=== PATIENT | male | born 1960 | race Caucasian/White ===

== ENCOUNTER 2017-11-23 12:38 | Emergency (ER) | payer MEDICARE ==
[2017-11-23] MEDS ORDERED: Sodium Chloride 0.9% 2.5 ML Syringe FLUSH PRN (12:45)
[2017-11-23] MEDS ORDERED: Sodium Chloride 0.9% 10 ML Syringe FLUSH PRN (12:45)
[2017-11-23] MEDS ORDERED: Famotidine 20 MG/2 ML SDV IVPUSH ONE (12:45)
[2017-11-23] MEDS ORDERED: Aspirin 81 MG Tab.Chew PO ONE (12:45)
--- NOTE | 2017-11-23 12:52 | EDM.PDOC ---
ED HPI GENERAL MEDICAL PROBLEM - General Chief Complaint: Chest Pain Stated Complaint: CHEST PAIN Time Seen by Provider: 11/23/17 12:46 Source of Information: Reports: Patient History Limitations: Reports: No Limitations - History of Present Illness INITIAL COMMENTS - FREE TEXT/NARRATIVE: HISTORY AND PHYSICAL: [57-year-old male presenting with midsternal chest pain radiating to the left] History of Present Illness: []For the last 3-4 days patient has had pain midsternally all that has become more noticeable now Patient has had torn muscle to the posterior left shoulder that has been improving Pain started when he was collecting boxes for a move to a new apartment Patient is a type II diabetic Permit care provider is Dr. Eulogio Su Review of Systems: As per history of present illness and below otherwise all systems reviewed and negative. Past medical history: As per history of present illness and as reviewed below otherwise noncontributory. Surgical history: As per history of present illness and as reviewed below otherwise noncontributory. Social history: No reported history of drug or alcohol abuse. Family history: As per history of present illness and as reviewed below otherwise noncontributory. Physical exam: Alert and oriented male answering questions appropriately he has a hearing aid to his left ear does not hear anything on the right. HEENT: Atraumatic, normocehpalic, pupils reactive, negative for conjunctival pallor or scleral icterus, mucous membranes moist, throat clear, neck supple, nontender, trachea midline. Lungs: Clear to auscultation, breath sounds equal bilaterally, chest non tender. Heart: S1S2, regular, negative for clicks, rubs, or JVD. Abdomen: Soft, nondistended, nontender. Negative for masses or hepatossplenmegaly. Negative for costovertebral tenderness. Pelvis: Stable nontender. Genitourinary: Deferred. Rectal: Deferred Extremities: Atraumatic, negative for cords or calf pain. Neurovascular unremarkable. Neuro: Awake, alert, oriented. Cranial nerves II through XII unremarkable. Cerebellum unremarkable. Motor and sensory unremarkable throughout. Exam nonfocal. Discussed with the patient and his that his cardiac enzymes are elevated and will need to send him for cardiology in [place] is agreeable to this action. Diagnostics: [CBC CMP troponin UA chest x-ray EKG] Therapeutics: [Aspirin 324 mg Pepcid IV ] Impression: [Chest pain with elevated troponin] Plan: [Transfer to [facility] emergency department [facility]] Definitive disposition and diagnosis as appropriate pending reevaluation and review of above. Onset: Sudden Duration: Day(s): (3-4) Location: Reports: Chest Severity: Moderate Chest Pain Score (Numeric/FACES): 5 - Related Data Allergies Allergy/AdvReac Type Severity Reaction Status Date / Time No Known Allergies Allergy Verified 11/23/17 12:48 Home Meds: Home Meds Aspirin [Barber Chewable Aspirin] 81 mg PO DAILY 10/24/14 [History] Fluticasone Propionate [Flonase] 1 spray NASBOTH QPM 10/24/14 [History] Insulin Aspart [NovoLOG] 28 unit SQ TID 10/24/14 [History] Insulin Detemir [Levemir] 50 unit SUBCUT QPM 10/24/14 [History] Lisinopril [Prinivil] 10 mg PO DAILY 10/24/14 [History] Meclizine [Antivert] 25 mg PO QID 10/24/14 [History] Omeprazole 40 mg PO DAILY 10/24/14 [History] Triamterene/Hydrochlorothiazid [Triamterene-HCTZ 37.5-25 MG] 25 mg PO DAILY 03/31 [History] Vitamin E 1,000 units PO DAILY 10/24/14 [History] metFORMIN [Glucophage XR] 500 mg PO BID 10/24/14 [History] Sildenafil [Viagra] 50 mg PO DAILY PRN 08/25/15 [History] Rosuvastatin [Crestor] 20 mg PO DAILY 11/23/17 [History] Past Medical History HEENT History: Reports: Hard of Hearing Cardiovascular History: Reports: High Cholesterol, Hypertension Endocrine/Metabolic History: Reports: Diabetes, Type II - Infectious Disease History Infectious Disease History: Reports: Chicken Pox, Measles - Past Surgical History Musculoskeletal Surgical History: Reports: Arthroscopic Knee Social & Family History - Family History Cardiac: Reports: CAD Respiratory: Reports: Asthma Neurological: Reports: MS - Tobacco Use Smoking Status *Q: Never Smoker Second Hand Smoke Exposure: No - Alcohol Use Days Per Week of Alcohol Use: 0 - Recreational Drug Use Recreational Drug Use: No ED ROS GENERAL - Review of Systems Review Of Systems: ROS reveals no pertinent complaints other than HPI. ED EXAM, GENERAL - Physical Exam Exam: See Below (see dictation) EKG INTERPRETATION EKG Date: 11/23/17 Rhythm: NSR Course - Vital Signs Last Recorded V/S: Last Vital Signs Temp 36.3 C 11/23/17 12:44 Pulse 73 11/23/17 13:50 Resp 13 11/23/17 13:50 BP 139/94 H 11/23/17 13:50 Pulse Ox 99 11/23/17 13:50 - Orders/Labs/Meds Orders: Active Orders 24 hr Category Date Time Status Cardiac Monitoring [RC] . DIRECTED Care 11/23/17 12:45 Active EKG Documentation Completion [RC] STAT Care 11/23/17 12:45 Active Oxygen Therapy [RC] ASDIRECTED Care 11/23/17 12:45 Active Chest 1V Frontal [CR] Stat Exams 11/23/17 13:00 Taken UA W/MICROSCOPIC [URIN] Stat Lab 11/23/17 12:45 Ordered Nitroglycerin [Nitrostat] Med 11/23/17 12:53 Active 0.4 mg SL Q5M PRN Sodium Chloride 0.9% [Normal Saline] 1,000 ml Med 11/23/17 13:39 Active IV STAT Sodium Chloride 0.9% [Saline Flush] Med 11/23/17 12:45 Active 10 ml FLUSH ASDIRECTED PRN Sodium Chloride 0.9% [Saline Flush] Med 11/23/17 12:45 Active 2.5 ml FLUSH ASDIRECTED PRN Saline Lock Insert [OM.PC] Stat Oth 11/23/17 12:45 Ordered Medication Orders Sodium Chloride (Normal Saline) 1,000 mls @ 999 mls/hr IV STAT ONE Stop: 11/23/17 14:39 Last Admin: 11/23/17 13:45 Dose: 999 mls/hr Nitroglycerin (Nitrostat) 0.4 mg SL Q5M PRN PRN Reason: Chest Pain Sodium Chloride (Saline Flush) 10 ml FLUSH ASDIRECTED PRN PRN Reason: Keep Vein Open Last Admin: 11/23/17 13:25 Dose: 10 ml Sodium Chloride (Saline Flush) 2.5 ml FLUSH ASDIRECTED PRN PRN Reason: Keep Vein Open Last Admin: 11/23/17 13:25 Dose: 2.5 ml Labs: Laboratory Tests 11/23/17 11/23/17 11/23/17 Range/Units 12:50 12:50 12:50 WBC 12.29 H (4.0-11.0) K/uL RBC 5.82 (4.50-5.90) M/uL Hgb 15.9 (13.0-17.0) g/dL Hct 45.7 (38.0-50.0) % MCV 78.5 L (80.0-98.0) fL MCH 27.3 (27.0-32.0) pg MCHC 34.8 (31.0-37.0) g/dL RDW Std Deviation 38.0 (28.0-62.0) fl RDW Coeff of [place] 14 (11.0-15.0) % Plt Count 316 (150-400) K/uL MPV 10.20 (7.40-12.00) fL Neut % (Auto) 73.4 (48.0-80.0) % Lymph % (Auto) 18.1 (16.0-40.0) % [place] % (Auto) 7.3 (0.0-15.0) % Eos % (Auto) 1.0 (0.0-7.0) % Baso % (Auto) 0.2 (0.0-1.5) % Neut # (Auto) 9.0 H (1.4-5.7) K/uL Lymph # (Auto) 2.2 (0.6-2.4) K/uL [place] # (Auto) 0.9 H (0.0-0.8) K/uL Eos # (Auto) 0.1 (0.0-0.7) K/uL Baso # (Auto) 0.0 (0.0-0.1) K/uL Nucleated RBC % 0.0 /100WBC Nucleated RBCs # 0 K/uL INR 1.04 Sodium 137 (136-148) mmol/L Potassium 4.1 (3.5-5.1) mmol/L Chloride 100 (98-107) mmol/L Carbon Dioxide 28.0 (21.0-32.0) mmol/L BUN 11 (7.0-18.0) mg/dL Creatinine 0.9 (0.8-1.3) mg/dL Est Cr Clr Drug Dosing 91.65 mL/min Estimated GFR (MDRD) > 60.0 ml/min Glucose 244 H (74-106) mg/dL Calcium 9.2 (8.5-10.1) mg/dL Total Bilirubin 0.4 (0.2-1.0) mg/dL AST 19 (15-37) IU/L ALT 29 (14-63) IU/L Alkaline Phosphatase 105 (46-116) U/L Troponin I 0.388 H* (0.000-0.056) ng/mL Total Protein 7.3 (6.4-8.2) g/dL Albumin 3.9 (3.4-5.0) g/dL Globulin 3.4 (2.0-3.5) g/dL Albumin/Globulin Ratio 1.1 L (1.3-2.8) Meds: Medications Generic Name Dose Route Start Last Admin Trade Name Freq PRN Reason Stop Dose Admin Sodium Chloride 1,000 mls @ 999 mls/hr 11/23/17 13:39 11/23/17 13:45 Normal Saline IV 11/23/17 14:39 999 mls/hr STAT ONE Administration Nitroglycerin 0.4 mg 11/23/17 12:53 Nitrostat SL Q5M PRN Chest Pain Sodium Chloride 10 ml 11/23/17 12:45 11/23/17 13:25 Saline Flush FLUSH 10 ml ASDIRECTED PRN Administration Keep Vein Open Sodium Chloride 2.5 ml 11/23/17 12:45 11/23/17 13:25 Saline Flush FLUSH 2.5 ml ASDIRECTED PRN Administration Keep Vein Open Discontinued Medications Generic Name Dose Route Start Last Admin Trade Name Freq PRN Reason Stop Dose Admin Aspirin 324 mg 11/23/17 12:45 11/23/17 13:25 Aspirin PO 11/23/17 12:46 324 mg ONETIME ONE Administration Famotidine 20 mg 11/23/17 12:45 11/23/17 13:25 Pepcid IVPUSH 11/23/17 12:46 20 mg ONETIME ONE Administration Morphine Sulfate 2 mg 11/23/17 13:39 11/23/17 13:45 Morphine IVPUSH 11/23/17 13:40 2 mg ONETIME ONE Administration Departure - Departure Time of Disposition: 13:55 Disposition: Home, Self-Care 01 Condition: Good Clinical Impression: Acute myocardial infarction Qualifiers: Myocardial infarction type: unspecified Involved coronary artery: unspecified coronary artery Qualified Code(s): I21.9 - Acute myocardial infarction, unspecified Instructions: Heart Attack, [id number] Forms: ED Department Discharge - My Orders Last 24 Hours: My Active Orders 11/23/17 12:45 Cardiac Monitoring [RC] . DIRECTED EKG Documentation Completion [RC] STAT Oxygen Therapy [RC] ASDIRECTED UA W/MICROSCOPIC [URIN] Stat Sodium Chloride 0.9% [Saline Flush] 10 ml FLUSH ASDIRECTED PRN Sodium Chloride 0.9% [Saline Flush] 2.5 ml FLUSH ASDIRECTED PRN Saline Lock Insert [OM.PC] Stat 11/23/17 12:53 Nitroglycerin [Nitrostat] 0.4 mg SL Q5M PRN 11/23/17 13:00 Chest 1V Frontal [CR] Stat 11/23/17 13:39 Sodium Chloride 0.9% [Normal Saline] 1,000 ml IV STAT - Assessment/Plan Last 24 Hours: My Active Orders 11/23/17 12:45 Cardiac Monitoring [RC] . DIRECTED EKG Documentation Completion [RC] STAT Oxygen Therapy [RC] ASDIRECTED UA W/MICROSCOPIC [URIN] Stat Sodium Chloride 0.9% [Saline Flush] 10 ml FLUSH ASDIRECTED PRN Sodium Chloride 0.9% [Saline Flush] 2.5 ml FLUSH ASDIRECTED PRN Saline Lock Insert [OM.PC] Stat 11/23/17 12:53 Nitroglycerin [Nitrostat] 0.4 mg SL Q5M PRN 11/23/17 13:00 Chest 1V Frontal [CR] Stat 11/23/17 13:39 Sodium Chloride 0.9% [Normal Saline] 1,000 ml IV STAT
[2017-11-23] MEDS ORDERED: Nitroglycerin 0.4 MG Tab.SL SL PRN (12:53)
[2017-11-23 13:36] LABS: CHLORIDE,CL 100 mmol/L (98-107); SODIUM,NA 137 mmol/L (136-148)
[2017-11-23] MEDS ORDERED: Morphine 2 MG/ML Syringe IVPUSH ONE (13:39)
[2017-11-23] MEDS ORDERED: Sodium Chloride 0.9% 1,000 ML IV ONE (13:39)
[2017-11-23] MEDS ORDERED: Nitroglycerin 2% Oint 1 GM UD Packet TOP ONE (14:01)
--- NOTE | 2017-11-23 14:24 | CR ---
EXAMINATION: Portable chest radiograph. HISTORY: Chest pain. FINDINGS: The trachea is midline. The cardiomediastinal silhouette is within normal limits. No pulmonary infilt rates, effusions or pneumothorax. Mild bibasilar atelectasis. Osseous structures appear unremarkable. IMPRESSION: No acute cardiopulmonary process.
[2017-11-23 14:43] VITALS: BP 145/92
== END 2017-11-23 14:52 ==
LOC: MW.ED 12:38
DX: I21.9 Acute myocardial infarction, unspecified (principal); I10 Essential (primary) hypertension; E78.00 Pure hypercholesterolemia, unspecified; E11.9 Type 2 diabetes mellitus without complications; Z79.82 Long term (current) use of aspirin; Z79.4 Long term (current) use of insulin; Z79.899 Other long term (current) drug therapy
CPT/HCPCS: 71045; 80053; 84484; 85025; 85610; 96361; 96374; 96375; 99285; A9270; J2270; J7040; 99284

== ENCOUNTER 2018-05-11 18:19 | Observation (INO) | payer MEDICARE ==
[2018-05-11] MEDS ORDERED: Sodium Chloride 0.9% 10 ML Syringe FLUSH PRN ×2 (18:26→21:36)
[2018-05-11] MEDS ORDERED: Aspirin 81 MG Tab.Chew PO ONE (18:26)
[2018-05-11] MEDS ORDERED: Sodium Chloride 0.9% 2.5 ML Syringe FLUSH PRN ×2 (18:26→21:36)
[2018-05-11] MEDS ORDERED: Sodium Chloride 0.9% 1,000 ML IV ONE (18:26)
--- NOTE | 2018-05-11 18:27 | EDM.PDOC ---
ED HPI GENERAL MEDICAL PROBLEM - General Chief Complaint: Chest Pain Stated Complaint: PT LEFT SIDE OF BODY NUMB Time Seen by Provider: 05/11/18 18:27 Source of Information: Reports: Patient History Limitations: Reports: No Limitations - History of Present Illness INITIAL COMMENTS - FREE TEXT/NARRATIVE: HISTORY AND PHYSICAL: History of present illness: Patient is a 58-year-old male here with complaint of chest pain on and off today. He states that he is not currently having chest pain but he did about 20 minutes ago. He states he felt a little nauseous and he is having a tingling in his left arm almost like she hit his funny bone. He has a history of acute [place] in November requiring stents. He denies any shortness of breath, diaphoresis, abdominal pain, vomiting, diarrhea. Review of systems: As per history of present illness and below otherwise all systems reviewed and negative. Past medical history: As per history of present illness and as reviewed below otherwise noncontributory. Surgical history: As per history of present illness and as reviewed below otherwise noncontributory. Social history: No reported history of drug or alcohol abuse. Family history: As per history of present illness and as reviewed below otherwise noncontributory. Physical exam: General: Patient sitting comfortably in no acute distress and nontoxic appearing HEENT: Atraumatic, normocephalic, pupils reactive, negative for conjunctival pallor or scleral icterus, mucous membranes moist, throat clear, neck supple, nontender, trachea midline. No meningeal signs. Lungs: Clear to auscultation, breath sounds equal bilaterally, chest nontender. Heart: S1S2, regular, negative for clicks, rubs, or overt murmur. Abdomen: Soft, obese, nontender. Negative for masses or hepatosplenomegaly. Negative for costovertebral tenderness. Pelvis: Stable nontender. Genitourinary: Deferred. Rectal: Deferred. Extremities: Atraumatic, negative for cords or calf pain. Neurovascular unremarkable. Neuro: Awake, alert, oriented. Cranial nerves II through XII unremarkable. Cerebellum unremarkable. Motor and sensory unremarkable throughout. Exam nonfocal. Notes: Diagnostics: CBC, CMP, troponin, lipase EKG, chest x-ray Therapeutics: Aspirin 325 mg Famotidine 20 mg IV Prescriptions: None Impression: Chest pain, r/o ACS Plan: Discussed with Dr. Antohi, patient will be admitted to observation on telemetry to rule out ACS. Definitive disposition and diagnosis as appropriate pending reevaluation and review of above. - Related Data Allergies Allergy/AdvReac Type Severity Reaction Status Date / Time No Known Allergies Allergy Verified 05/11/18 18:30 Home Meds: Home Meds Aspirin [Barber Chewable Aspirin] 81 mg PO DAILY 10/24/14 [History] Fluticasone Propionate [Flonase] 1 spray NASBOTH QPM 10/24/14 [History] Insulin Aspart [NovoLOG] 28 unit SQ TID 10/24/14 [History] Insulin Detemir [Levemir] 50 unit SUBCUT QPM 10/24/14 [History] Lisinopril [Prinivil] 10 mg PO DAILY 10/24/14 [History] Meclizine [Antivert] 25 mg PO QID 10/24/14 [History] Omeprazole 40 mg PO DAILY 10/24/14 [History] Triamterene/Hydrochlorothiazid [Triamterene-HCTZ 37.5-25 MG] 25 mg PO DAILY 03/31 [History] Vitamin E 1,000 units PO DAILY 10/24/14 [History] metFORMIN [Glucophage XR] 500 mg PO BID 10/24/14 [History] Sildenafil [Viagra] 50 mg PO DAILY PRN 08/25/15 [History] Rosuvastatin [Crestor] 20 mg PO DAILY 11/23/17 [History] Past Medical History HEENT History: Reports: Hard of Hearing Cardiovascular History: Reports: High Cholesterol, Hypertension Endocrine/Metabolic History: Reports: Diabetes, Type II - Infectious Disease History Infectious Disease History: Reports: Chicken Pox, Measles - Past Surgical History Musculoskeletal Surgical History: Reports: Arthroscopic Knee Social & Family History - Family History Family Medical History: Noncontributory Cardiac: Reports: CAD Respiratory: Reports: Asthma Neurological: Reports: MS ED ROS GENERAL - Review of Systems Review Of Systems: ROS reveals no pertinent complaints other than HPI. ED EXAM, GENERAL - Physical Exam Exam: See Below (see dictation) Course - Vital Signs Last Recorded V/S: Last Vital Signs Temp 36.6 C 05/11/18 18:19 Pulse 77 05/11/18 18:19 Resp 18 05/11/18 18:19 BP 150/89 H 08/25/18 18:19 Pulse Ox 98 05/11/18 18:19 - Orders/Labs/Meds Orders: Active Orders 24 hr Category Date Time Status Admission Status [Patient Status] [ADT] Stat ADT 05/11/18 19:46 Ordered Cardiac Monitoring [RC] . DIRECTED Care 05/11/18 18:26 Active EKG Documentation Completion [RC] STAT Care 05/11/18 18:26 Active Pulse Oximetry [RC] ASDIRECTED Care 05/11/18 18:26 Active Chest 1V Frontal [CR] Stat Exams 05/11/18 18:26 Taken Sodium Chloride 0.9% [Saline Flush] Med 05/11/18 18:26 Active 10 ml FLUSH ASDIRECTED PRN Sodium Chloride 0.9% [Saline Flush] Med 05/11/18 18:26 Active 2.5 ml FLUSH ASDIRECTED PRN Saline Lock Insert [OM.PC] Stat Oth 05/11/18 18:26 Ordered Medication Orders Sodium Chloride (Saline Flush) 10 ml FLUSH ASDIRECTED PRN PRN Reason: Keep Vein Open Sodium Chloride (Saline Flush) 2.5 ml FLUSH ASDIRECTED PRN PRN Reason: Keep Vein Open Labs: Laboratory Tests 05/11/18 05/11/18 05/11/18 Range/Units 18:35 18:35 18:35 WBC 12.53 H (4.0-11.0) K/uL RBC 5.80 (4.50-5.90) M/uL Hgb 16.0 (13.0-17.0) g/dL Hct 45.9 (38.0-50.0) % MCV 79.1 L (80.0-98.0) fL MCH 27.6 (27.0-32.0) pg MCHC 34.9 (31.0-37.0) g/dL RDW Std Deviation 38.6 (28.0-62.0) fl RDW Coeff of [place] 14 (11.0-15.0) % Plt Count 327 (150-400) K/uL MPV 9.90 (7.40-12.00) fL Neut % (Auto) 64.7 (48.0-80.0) % Lymph % (Auto) 27.1 (16.0-40.0) % [place] % (Auto) 5.4 (0.0-15.0) % Eos % (Auto) 2.6 (0.0-7.0) % Baso % (Auto) 0.2 (0.0-1.5) % Neut # (Auto) 8.1 H (1.4-5.7) K/uL Lymph # (Auto) 3.4 H (0.6-2.4) K/uL [place] # (Auto) 0.7 (0.0-0.8) K/uL Eos # (Auto) 0.3 (0.0-0.7) K/uL Baso # (Auto) 0.0 (0.0-0.1) K/uL Nucleated RBC % 0.0 /100WBC Nucleated RBCs # 0 K/uL INR 1.04 Sodium 139 (136-148) mmol/L Potassium 3.9 (3.5-5.1) mmol/L Chloride 103 (98-107) mmol/L Carbon Dioxide 28.5 (21.0-32.0) mmol/L BUN 16 (7.0-18.0) mg/dL Creatinine 1.1 (0.8-1.3) mg/dL Est Cr Clr Drug Dosing TNP Estimated GFR (MDRD) > 60.0 ml/min Glucose 139 H (74-106) mg/dL Calcium 9.5 (8.5-10.1) mg/dL Total Bilirubin 0.4 (0.2-1.0) mg/dL AST 13 L (15-37) IU/L ALT 25 (14-63) IU/L Alkaline Phosphatase 88 (46-116) U/L Troponin I < 0.050 (0.000-0.056) ng/mL Total Protein 7.9 (6.4-8.2) g/dL Albumin 4.4 (3.4-5.0) g/dL Globulin 3.5 (2.0-3.5) g/dL Albumin/Globulin Ratio 1.3 (1.3-2.8) Lipase 242 (73-393) U/L Meds: Medications Generic Name Dose Route Start Last Admin Trade Name Freq PRN Reason Stop Dose Admin Sodium Chloride 10 ml 05/11/18 18:26 Saline Flush FLUSH ASDIRECTED PRN Keep Vein Open Sodium Chloride 2.5 ml 05/11/18 18:26 Saline Flush FLUSH ASDIRECTED PRN Keep Vein Open Discontinued Medications Generic Name Dose Route Start Last Admin Trade Name Freq PRN Reason Stop Dose Admin Aspirin 324 mg 05/11/18 18:26 05/11/18 18:56 Aspirin PO 05/11/18 18:27 324 mg ONETIME ONE Administration Famotidine 20 mg 05/11/18 18:28 05/11/18 18:58 Pepcid IVPUSH 05/11/18 18:29 20 mg ONETIME ONE Administration Sodium Chloride 1,000 mls @ 999 mls/hr 05/11/18 18:26 05/11/18 18:56 Normal Saline IV 05/11/18 19:26 999 mls/hr BOLUS ONE Administration Departure - Departure Time of Disposition: 19:48 Disposition: Refer to Observation Condition: Good Clinical Impression: Chest pain Referrals: PCP,None [Primary Care Provider] - Forms: ED Department Discharge - My Orders Last 24 Hours: My Active Orders 05/11/18 18:26 Cardiac Monitoring [RC] . DIRECTED EKG Documentation Completion [RC] STAT Pulse Oximetry [RC] ASDIRECTED Chest 1V Frontal [CR] Stat Sodium Chloride 0.9% [Saline Flush] 10 ml FLUSH ASDIRECTED PRN Sodium Chloride 0.9% [Saline Flush] 2.5 ml FLUSH ASDIRECTED PRN Saline Lock Insert [OM.PC] Stat 05/11/18 19:46 Admission Status [Patient Status] [ADT] Stat - Assessment/Plan Last 24 Hours: My Active Orders 05/11/18 18:26 Cardiac Monitoring [RC] . DIRECTED EKG Documentation Completion [RC] STAT Pulse Oximetry [RC] ASDIRECTED Chest 1V Frontal [CR] Stat Sodium Chloride 0.9% [Saline Flush] 10 ml FLUSH ASDIRECTED PRN Sodium Chloride 0.9% [Saline Flush] 2.5 ml FLUSH ASDIRECTED PRN Saline Lock Insert [OM.PC] Stat 05/11/18 19:46 Admission Status [Patient Status] [ADT] Stat
[2018-05-11] MEDS ORDERED: Famotidine 20 MG/2 ML SDV IVPUSH ONE (18:28)
[2018-05-11 19:35] LABS: CHLORIDE,CL 103 mmol/L (98-107); SODIUM,NA 139 mmol/L (136-148)
[2018-05-11] MEDS ORDERED: oxyCODONE 5 MG Tab PO PRN (21:36)
[2018-05-11] MEDS ORDERED: Albuterol/Ipratropium 3.0-0.5 MG/3 ML Neb Soln NEB PRN (21:36)
[2018-05-11] MEDS ORDERED: Morphine 2 MG/ML Syringe IVPUSH PRN (21:36)
[2018-05-11] MEDS ORDERED: Acetaminophen 325 MG Tab PO PRN (21:36)
[2018-05-11] MEDS ORDERED: Enoxaparin 40 MG/0.4 ML Syringe SUBCUT SCH (21:45)
[2018-05-11] MEDS ORDERED: Insulin Detemir 100 Units/ML 3 ML Pen SUBCUT SCH (21:45)
[2018-05-11] MEDS ORDERED: Insulin Aspart 100 Units/ML 3 ML Pen SUBCUT SCH (22:00)
[2018-05-12 04:51] LABS: CHLORIDE,CL 107 mmol/L (98-107); SODIUM,NA 142 mmol/L (136-148)
[2018-05-12] MEDS ORDERED: Omeprazole 20 MG Cap.CR PO SCH (07:30)
[2018-05-12] MEDS ORDERED: Insulin Aspart 100 Units/ML 3 ML Pen SUBCUT SCH (07:30)
[2018-05-12] MEDS ORDERED: Hydrochlorothiazide/Triamterene 25-37.5 Tab PO SCH (09:00)
[2018-05-12] MEDS ORDERED: Vitamin E (dl-alpha-tocopherol acetate) 400 Unit Cap PO SCH (09:00)
[2018-05-12] MEDS ORDERED: Meclizine 25 MG Tab PO SCH ×3 (09:00)
[2018-05-12] MEDS ORDERED: Lisinopril 10 MG Tab PO SCH (09:00)
[2018-05-12] MEDS ORDERED: Aspirin 81 MG Tab.Chew PO SCH (09:00)
[2018-05-12] MEDS ORDERED: Rosuvastatin 10 MG Tab PO SCH (09:00)
[2018-05-12 12:27] VITALS: BP 103/58
[2018-05-12] MEDS ORDERED: INSULIN DEGLUDEC 50 UNIT SQ SCH (12:30)
[2018-05-12] MEDS ORDERED: INSULIN DEGLUDEC 48 UNIT SUBCUT SCH (12:30)
--- NOTE | 2018-05-12 15:36 | PCM.HP ---
H&P History of Present Illness - General Date of Service: 05/12/18 Admit Problem/Dx: Admission Diagnosis/Problem Admission Diagnosis/Problem Chest pain Source of Information: Patient History Limitations: Reports: No Limitations - History of Present Illness Initial Comments - Free Text/Narative: Patient 58 years old man presented to hospital because of chest pain that was sharp and localized in the middle of the chest , also he had some tingling in the left arm. Patient says that his pain was between 30 seconds to 1 minute, and he had about 5-6 episodes throughout the day, yesterday. He had DC in November , this years and he is status post stent. Patient has past medical history of diabetes mellitus, hyperlipidemia and hypertension. His chest pain was not tender to palpation, and did not change with bridging Duration of Symptoms: Reports: Hour(s): Location: Reports: Chest, Upper Extremity, Left - Related Data Allergies/Adverse Reactions: Allergies Allergy/AdvReac Type Severity Reaction Status Date / Time No Known Allergies Allergy Verified 05/11/18 18:30 Home Medications: Home Meds Aspirin [Barber Chewable Aspirin] 81 mg PO DAILY 10/24/14 [History] Fluticasone Propionate [Flonase] 1 spray NASBOTH QPM 10/24/14 [History] Insulin Aspart [NovoLOG] See Protocol SQ TID 10/24/14 [History] Lisinopril [Prinivil] 10 mg PO DAILY 10/24/14 [History] Meclizine [Antivert] 25 mg PO QID 10/24/14 [History] Omeprazole 40 mg PO DAILY 10/24/14 [History] Triamterene/Hydrochlorothiazid [Triamterene-HCTZ 37.5-25 MG] 25 mg PO DAILY 03/31 [History] Vitamin E 1,000 units PO DAILY 10/24/14 [History] metFORMIN [Glucophage XR] 500 mg PO BID 10/24/14 [History] Rosuvastatin [Crestor] 20 mg PO DAILY 11/23/17 [History] Clopidogrel [Plavix] 75 mg PO DAILY 05/11/18 [History] Insulin Degludec [Tresiba Flextouch U-100] 50 units SQ PCLUNCH 05/11/18 [History ] Metoprolol Tartrate 25 mg PO BID 05/11/18 [History] Ranitidine [Zantac] 150 mg PO BEDTIME 05/11/18 [History] Gabapentin [Neurontin] 200 mg PO TID #180 capsule 05/12/18 [Rx] Past Medical History HEENT History: Reports: Hard of Hearing Cardiovascular History: Reports: High Cholesterol, Hypertension Other Cardiovascular History: DC on Endocrine/Metabolic History: Reports: Diabetes, Type II - Infectious Disease History Infectious Disease History: Reports: Chicken Pox, Measles - Past Surgical History GI Surgical History: Reports: Appendectomy, Cholecystectomy Musculoskeletal Surgical History: Reports: Arthroscopic Knee Social & Family History - Family History Family Medical History: Noncontributory Cardiac: Reports: CAD Respiratory: Reports: Asthma Neurological: Reports: MS - Tobacco Use Smoking Status *Q: Former Smoker Used Tobacco, but Quit: Yes Month/Year Tobacco Last Used: 12 years ago Second Hand Smoke Exposure: No - Caffeine Use Caffeine Use: Reports: Soda - Recreational Drug Use Recreational Drug Use: No H&P Review of Systems - Review of Systems: Review Of Systems: See Below General: Reports: No Symptoms HEENT: Reports: No Symptoms Pulmonary: Reports: No Symptoms Cardiovascular: Reports: No Symptoms, Chest Pain Gastrointestinal: Reports: No Symptoms Genitourinary: Reports: No Symptoms Musculoskeletal: Reports: No Symptoms Skin: Reports: No Symptoms Psychiatric: Reports: No Symptoms Neurological: Reports: Tingling Hematologic/Lymphatic: Reports: No Symptoms Immunologic: Reports: No Symptoms Exam - Exam Exam: See Below - Vital Signs Vital Signs: Last Vital Signs Temp 208.0 F H 05/12/18 08:00 Pulse 108 H 05/12/18 08:00 Resp 18 05/12/18 08:00 BP 123/80 05/12/18 08:31 Pulse Ox 96 05/12/18 08:00 Weight: 217 lb - Exam Quality Assessment: No: Supplemental Oxygen General: Alert, Oriented HEENT: Conjunctiva Clear Neck: Supple, Trachea Midline. No: Thyromegaly Lungs: Clear to Auscultation, Normal Respiratory Effort Cardiovascular: Regular Rate, Regular Rhythm, Normal S1, Normal S2. No: Systolic Murmur, Diastolic Murmur GI/Abdominal Exam: Normal Bowel Sounds, Soft, Non-Tender, No Organomegaly, No Distention Back Exam: Normal Inspection Extremities: Normal Inspection, No Pedal Edema Skin: Warm, Dry, Intact Neurological: Cranial Nerves Intact Neuro Extensive - Mental Status: Alert, Oriented x3 Neuro Extensive - Motor, Sensory, Reflexes: CN II-XII Intact, Normal Gait Psychiatric: Alert, Normal Affect, Normal Mood - Patient Data Lab Results Last 24 hrs: Laboratory Results - last 24 hr 05/11/18 05/11/18 05/11/18 Range/Units 18:35 18:35 18:35 WBC 12.53 H (4.0-11.0) K/uL RBC 5.80 (4.50-5.90) M/uL Hgb 16.0 (13.0-17.0) g/dL Hct 45.9 (38.0-50.0) % MCV 79.1 L (80.0-98.0) fL MCH 27.6 (27.0-32.0) pg MCHC 34.9 (31.0-37.0) g/dL RDW Std Deviation 38.6 (28.0-62.0) fl RDW Coeff of [place] 14 (11.0-15.0) % Plt Count 327 (150-400) K/uL MPV 9.90 (7.40-12.00) fL Neut % (Auto) 64.7 (48.0-80.0) % Lymph % (Auto) 27.1 (16.0-40.0) % [place] % (Auto) 5.4 (0.0-15.0) % Eos % (Auto) 2.6 (0.0-7.0) % Baso % (Auto) 0.2 (0.0-1.5) % Neut # (Auto) 8.1 H (1.4-5.7) K/uL Lymph # (Auto) 3.4 H (0.6-2.4) K/uL [place] # (Auto) 0.7 (0.0-0.8) K/uL Eos # (Auto) 0.3 (0.0-0.7) K/uL Baso # (Auto) 0.0 (0.0-0.1) K/uL Nucleated RBC % 0.0 /100WBC Nucleated RBCs # 0 K/uL INR 1.04 Sodium 139 (136-148) mmol/L Potassium 3.9 (3.5-5.1) mmol/L Chloride 103 (98-107) mmol/L Carbon Dioxide 28.5 (21.0-32.0) mmol/L BUN 16 (7.0-18.0) mg/dL Creatinine 1.1 (0.8-1.3) mg/dL Est Cr Clr Drug Dosing TNP Estimated GFR (MDRD) > 60.0 ml/min Glucose 139 H (74-106) mg/dL POC Glucose (60-110) mg/dL Hemoglobin A1c (4.5-6.2) % Calcium 9.5 (8.5-10.1) mg/dL Total Bilirubin 0.4 (0.2-1.0) mg/dL AST 13 L (15-37) IU/L ALT 25 (14-63) IU/L Alkaline Phosphatase 88 (46-116) U/L Troponin I < 0.050 (0.000-0.056) ng/mL Total Protein 7.9 (6.4-8.2) g/dL Albumin 4.4 (3.4-5.0) g/dL Globulin 3.5 (2.0-3.5) g/dL Albumin/Globulin Ratio 1.3 (1.3-2.8) Triglycerides (0-200) mg/dL Cholesterol (50-200) mg/dL LDL Cholesterol, Calc (60-180) mg/dL VLDL Cholesterol (5-55) mg/dL HDL Cholesterol (40-60) mg/dL Cholesterol/HDL Ratio (3.3-6.0) Lipase 242 (73-393) U/L 05/11/18 05/12/18 05/12/18 Range/Units 22:16 03:39 03:39 WBC 10.16 (4.0-11.0) K/uL RBC 5.06 (4.50-5.90) M/uL Hgb 13.7 (13.0-17.0) g/dL Hct 40.0 (38.0-50.0) % MCV 79.1 L (80.0-98.0) fL MCH 27.1 (27.0-32.0) pg MCHC 34.3 (31.0-37.0) g/dL RDW Std Deviation 39.0 (28.0-62.0) fl RDW Coeff of [place] 14 (11.0-15.0) % Plt Count 260 (150-400) K/uL MPV 9.80 (7.40-12.00) fL Neut % (Auto) (48.0-80.0) % Lymph % (Auto) (16.0-40.0) % [place] % (Auto) (0.0-15.0) % Eos % (Auto) (0.0-7.0) % Baso % (Auto) (0.0-1.5) % Neut # (Auto) (1.4-5.7) K/uL Lymph # (Auto) (0.6-2.4) K/uL [place] # (Auto) (0.0-0.8) K/uL Eos # (Auto) (0.0-0.7) K/uL Baso # (Auto) (0.0-0.1) K/uL Nucleated RBC % 0.0 /100WBC Nucleated RBCs # 0 K/uL INR Sodium 142 (136-148) mmol/L Potassium 3.9 (3.5-5.1) mmol/L Chloride 107 (98-107) mmol/L Carbon Dioxide 29.1 (21.0-32.0) mmol/L BUN 15 (7.0-18.0) mg/dL Creatinine 1.1 (0.8-1.3) mg/dL Est Cr Clr Drug Dosing 71.68 Estimated GFR (MDRD) > 60.0 ml/min Glucose 131 H (74-106) mg/dL POC Glucose 129 H (60-110) mg/dL Hemoglobin A1c (4.5-6.2) % Calcium 8.7 (8.5-10.1) mg/dL Total Bilirubin (0.2-1.0) mg/dL AST (15-37) IU/L ALT (14-63) IU/L Alkaline Phosphatase (46-116) U/L Troponin I (0.000-0.056) ng/mL Total Protein (6.4-8.2) g/dL Albumin (3.4-5.0) g/dL Globulin (2.0-3.5) g/dL Albumin/Globulin Ratio (1.3-2.8) Triglycerides (0-200) mg/dL Cholesterol (50-200) mg/dL LDL Cholesterol, Calc (60-180) mg/dL VLDL Cholesterol (5-55) mg/dL HDL Cholesterol (40-60) mg/dL Cholesterol/HDL Ratio (3.3-6.0) Lipase (73-393) U/L 05/12/18 05/12/18 05/12/18 Range/Units 03:39 03:39 06:22 WBC (4.0-11.0) K/uL RBC (4.50-5.90) M/uL Hgb (13.0-17.0) g/dL Hct (38.0-50.0) % MCV (80.0-98.0) fL MCH (27.0-32.0) pg MCHC (31.0-37.0) g/dL RDW Std Deviation (28.0-62.0) fl RDW Coeff of [place] (11.0-15.0) % Plt Count (150-400) K/uL MPV (7.40-12.00) fL Neut % (Auto) (48.0-80.0) % Lymph % (Auto) (16.0-40.0) % [place] % (Auto) (0.0-15.0) % Eos % (Auto) (0.0-7.0) % Baso % (Auto) (0.0-1.5) % Neut # (Auto) (1.4-5.7) K/uL Lymph # (Auto) (0.6-2.4) K/uL [place] # (Auto) (0.0-0.8) K/uL Eos # (Auto) (0.0-0.7) K/uL Baso # (Auto) (0.0-0.1) K/uL Nucleated RBC % /100WBC Nucleated RBCs # K/uL INR Sodium (136-148) mmol/L Potassium (3.5-5.1) mmol/L Chloride (98-107) mmol/L Carbon Dioxide (21.0-32.0) mmol/L BUN (7.0-18.0) mg/dL Creatinine (0.8-1.3) mg/dL Est Cr Clr Drug Dosing Estimated GFR (MDRD) ml/min Glucose (74-106) mg/dL POC Glucose 63 (60-110) mg/dL Hemoglobin A1c 7.7 H (4.5-6.2) % Calcium (8.5-10.1) mg/dL Total Bilirubin (0.2-1.0) mg/dL AST (15-37) IU/L ALT (14-63) IU/L Alkaline Phosphatase (46-116) U/L Troponin I < 0.050 (0.000-0.056) ng/mL Total Protein (6.4-8.2) g/dL Albumin (3.4-5.0) g/dL Globulin (2.0-3.5) g/dL Albumin/Globulin Ratio (1.3-2.8) Triglycerides (0-200) mg/dL Cholesterol (50-200) mg/dL LDL Cholesterol, Calc (60-180) mg/dL VLDL Cholesterol (5-55) mg/dL HDL Cholesterol (40-60) mg/dL Cholesterol/HDL Ratio (3.3-6.0) Lipase (73-393) U/L 05/12/18 05/12/18 Range/Units 07:26 09:30 WBC (4.0-11.0) K/uL RBC (4.50-5.90) M/uL Hgb (13.0-17.0) g/dL Hct (38.0-50.0) % MCV (80.0-98.0) fL MCH (27.0-32.0) pg MCHC (31.0-37.0) g/dL RDW Std Deviation (28.0-62.0) fl RDW Coeff of [place] (11.0-15.0) % Plt Count (150-400) K/uL MPV (7.40-12.00) fL Neut % (Auto) (48.0-80.0) % Lymph % (Auto) (16.0-40.0) % [place] % (Auto) (0.0-15.0) % Eos % (Auto) (0.0-7.0) % Baso % (Auto) (0.0-1.5) % Neut # (Auto) (1.4-5.7) K/uL Lymph # (Auto) (0.6-2.4) K/uL [place] # (Auto) (0.0-0.8) K/uL Eos # (Auto) (0.0-0.7) K/uL Baso # (Auto) (0.0-0.1) K/uL Nucleated RBC % /100WBC Nucleated RBCs # K/uL INR Sodium (136-148) mmol/L Potassium (3.5-5.1) mmol/L Chloride (98-107) mmol/L Carbon Dioxide (21.0-32.0) mmol/L BUN (7.0-18.0) mg/dL Creatinine (0.8-1.3) mg/dL Est Cr Clr Drug Dosing Estimated GFR (MDRD) ml/min Glucose (74-106) mg/dL POC Glucose (60-110) mg/dL Hemoglobin A1c (4.5-6.2) % Calcium (8.5-10.1) mg/dL Total Bilirubin (0.2-1.0) mg/dL AST (15-37) IU/L ALT (14-63) IU/L Alkaline Phosphatase (46-116) U/L Troponin I < 0.050 (0.000-0.056) ng/mL Total Protein (6.4-8.2) g/dL Albumin (3.4-5.0) g/dL Globulin (2.0-3.5) g/dL Albumin/Globulin Ratio (1.3-2.8) Triglycerides 86 (0-200) mg/dL Cholesterol 153 (50-200) mg/dL LDL Cholesterol, Calc 95 (60-180) mg/dL VLDL Cholesterol 17 (5-55) mg/dL HDL Cholesterol 41 (40-60) mg/dL Cholesterol/HDL Ratio 3.7 (3.3-6.0) Lipase (73-393) U/L Result Diagrams: 05/12/18 03:39 05/12/18 03:39 - Problem List (1) Chest pain at rest SNOMED Code(s): 8593492 ICD Code: R07.9 - CHEST PAIN, UNSPECIFIED Status: Acute Problem List Initiated/Reviewed/Updated: Yes Orders Last 24hrs: Active Orders 24 hr Category Date Time Status Admission Status [Patient Status] [ADT] Stat ADT 05/11/18 19:46 Active Blood Glucose Check, Bedside [RC] TIDAC Care 05/12/18 07:30 Active EKG Documentation Completion [RC] STAT Care 05/11/18 18:26 Active Oxygen Therapy [RC] PRN Care 05/11/18 21:36 Active Pulse Oximetry [RC] ASDIRECTED Care 05/11/18 18:26 Active Pulse Oximetry [RC] PRN Care 05/11/18 21:36 Active RT Aerosol Therapy [RC] ASDIRECTED Care 05/11/18 21:37 Active Ready for Discharge [RC] PER UNIT ROUTINE Care 05/12/18 09:13 Active Telemetry Monitoring [Cardiac Monitoring] [RC] Q8H Care 05/11/18 19:53 Active Up ad Rona [RC] ASDIRECTED Care 05/11/18 21:36 Active VTE/DVT Education [RC] PER UNIT ROUTINE Care 05/11/18 21:36 Active Vital Signs [RC] Q4H Care 05/11/18 21:36 Active Chest 1V Frontal [CR] Stat Exams 05/11/18 18:26 Taken Peripheral IV Insertion Adult [OM.PC] Routine Oth 05/11/18 21:36 Ordered Saline Lock Insert [OM.PC] Stat Oth 05/11/18 18:26 Ordered Sequential Compression Device [OM.PC] Per Unit Routine Oth 05/11/18 21:36 Ordered Resuscitation Status Routine Resus Stat 05/11/18 21:36 Ordered Assessment/Plan Comment:: will admit patient to telemetry will f/up serial troponins times 3 q 6 h lipid panel , HB A1c for diabetes will continue patient with insulin detemir 50 units at lunch and insulin on sliding scale AC and Hs and insulin aspart 28 units with meals Will hold the oral medications. For CAD- metoprolol 25 mg po BID Aspirin 81 mg po daily , plavix 75 mg po daily Lisinopril 10 mg po daily GI profilaxis : protonix 40 mg po daily lovenox 40 mg subcutaneous q 24 h
[2018-05-12] MEDS ORDERED: Fluticasone Propionate Nasal Spray 16 GM Bottle NASBOTH SCH (18:00)
[2018-05-12] MEDS ORDERED: Metoprolol Tartrate 25 MG Tab PO SCH (21:00)
[2018-05-12] MEDS ORDERED: Ranitidine 15 MG/ML Syrup 10 ML UD Cup PO SCH (21:00)
[2018-05-13] MEDS ORDERED: Clopidogrel 75 MG Tab PO SCH (09:00)
--- NOTE | 2018-05-13 12:04 | CR ---
EXAM DATE: 05/11/18 PATIENT'S AGE: 58 Patient: REBECA RICE Facility: [place], [place] Site . Site : [id number] Study: XRay Chest [id number]/25/2018 6:48:23 PM Ordering Physician: Doctor Tamayo Final Report: Indication: Chest Pain Technique: A single AP portable view of the chest was obtained. Comparison: None Findings: The heart is normal in size. The lungs are clear. No infiltrate, pleural effusion, or pneumothorax is identified. Impression: No acute cardiopulmonary process Dictated by Pam Henry MD @ May 11 2018 6:48PM (Electronic Signature) Report Signed by Proxy. LILA
== END 2018-05-12 11:30 | disposition home or self-care (01) ==
LOC: MW.ED 18:19 → MW.MS 20:03
PROVIDERS: ADMIT Internal Medicine; ATTEND Internal Medicine
DX: R07.89 Other chest pain (principal); I10 Essential (primary) hypertension; E11.9 Type 2 diabetes mellitus without complications; E78.5 Hyperlipidemia, unspecified; I25.2 Old myocardial infarction; I25.10 Atherosclerotic heart disease of native coronary artery without angina pectoris; Z87.891 Personal history of nicotine dependence; Z79.82 Long term (current) use of aspirin; Z79.4 Long term (current) use of insulin; Z79.899 Other long term (current) drug therapy
CPT/HCPCS: 36415; 71045; 80048; 80053; 80061; 82962; 83036; 83690; 84484; 85025; 85027; 85610; 93005; 96361; 96374; 99285; A9270; J1650; J1815; J3490; J7040; 96372; G0378

== ENCOUNTER 2019-08-18 20:04 | Observation (INO) | payer MEDICARE ==
[2019-08-18] MEDS ORDERED: Aspirin 81 MG Tab.Chew PO ONE (20:27)
--- NOTE | 2019-08-18 20:36 | EDM.PDOC ---
ED [facility] GENERAL MEDICAL PROBLEM - General Chief Complaint: Chest Pain Stated Complaint: CHEST PAINS, SHOULDER PAIN Time Seen by Provider: 08/18/19 20:05 Source of Information: Reports: Patient History Limitations: Reports: No Limitations - History of Present Illness INITIAL COMMENTS - FREE TEXT/NARRATIVE: HISTORY AND PHYSICAL: History of present illness: Patient is a 51-year-old male presents to the ED today with concern of intermittent chest pain since lunch. Patient states he first had chest pain when he was eating lunch today and states it was sharp in the middle of his chest and radiated to his left shoulder. Patient states this lasted several minutes but then resolved. Patient states he then was having the chest pain periodically since then but states the episodes only last a few seconds. Patient states he is not currently having chest pain at this time. Patient states he did have stents placed in 2018 due to a prior heart attack and has a history of diabetes on insulin. Patient denies any other symptoms or concerns. Patient denies fever, chills, shortness of breath, or cough. Denies headache, neck stiff ness, change in vision, syncope, or near syncope. Denies nausea, vomiting, abdominal pain, diarrhea, constipation, or dysuria. Has not noted any blood in urine or stool. Patient has been eating and drinking appropriately. Review of systems: As per history of present illness and below otherwise all systems reviewed and negative. Past medical history: As per history of present illness and as reviewed below otherwise noncontributory. Surgical history: As per history of present illness and as reviewed below otherwise noncontributory. Social history: See social history for further information Family history: As per history of present illness and as reviewed below otherwise noncontributory. Physical exam: General: Patient is alert, oriented, and in no acute distress. Patient sitting comfortably on exam table. HEENT: Atraumatic, normocephalic, pupils equal and reactive bilaterally, negative for conjunctival pallor or scleral icterus, mucous membranes moist, TMs normal bilaterally, throat clear, neck supple, nontender, trachea midline. No drooling or trismus noted. No meningeal signs. No hot potato voice noted. Lungs: Clear to auscultation, breath sounds equal bilaterally, chest nontender. Heart: S1S2, regular rate and rhythm without overt murmur Abdomen: Soft, nondistended, nontender. Negative for masses or hepatosplenomegaly. Negative for costovertebral tenderness. Pelvis: Stable nontender. Genitourinary: Deferred. Rectal: Deferred. Skin: Intact, warm, dry. No lesions or rashes noted. Extremities: Atraumatic, negative for cords or calf pain. Neurovascular unremarkable. Neuro: Awake, alert, oriented. Cranial nerves II through XII unremarkable. Cerebellum unremarkable. Motor and sensory unremarkable throughout. Exam nonfocal. Notes: Dr. Strickland, hospitalist utility bill collection clerk, accepting of admission to observation with telemetry. Voices understanding and is agreeable to plan of care. Denies any further questions or concerns at this time. Diagnostics: CBC, CMP, UA, EKG, chest x-ray, troponin, lipase Therapeutics: ASA Impression: Chest pain r/o ACS Plan: Admit to Dr. Strickland on telemetry to observation. Definitive disposition and diagnosis as appropriate pending reevaluation and review of above. chest Pain Score (Numeric/FACES): 0 - Related Data Allergies Allergy/AdvReac Type Severity Reaction Status Date / Time No Known Allergies Allergy Verified 08/18/19 20:11 Home Meds: Home Meds Aspirin [Barber Chewable Aspirin] 81 mg PO DAILY 10/24/14 [History] Fluticasone Propionate [Flonase] 1 spray NASBOTH QPM 10/24/14 [History] Insulin Aspart [NovoLOG] See Protocol SQ TID 10/24/14 [History] Lisinopril [Prinivil] 10 mg PO DAILY 10/24/14 [History] Meclizine [Antivert] 25 mg PO QID 10/24/14 [History] Triamterene/Hydrochlorothiazid [Triamterene-HCTZ 37.5-25 MG] 25 mg PO DAILY 03/31 [History] Vitamin E 1,000 units PO DAILY 10/24/14 [History] metFORMIN [Glucophage XR] 500 mg PO BID 10/24/14 [History] Rosuvastatin [Crestor] 20 mg PO DAILY 11/23/17 [History] Clopidogrel [Plavix] 75 mg PO DAILY 05/11/18 [History] Insulin Degludec [Tresiba Flextouch U-100] 50 units SQ PCLUNCH 05/11/18 [History ] Metoprolol Tartrate 25 mg PO BID 05/11/18 [History] Ranitidine [Zantac] 150 mg PO BEDTIME 05/11/18 [History] Past Medical History HEENT History: Reports: Hard of Hearing 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 Cardiovascular History: Reports: High Cholesterol, Hypertension, Stents Other Cardiovascular History: PR on Endocrine/Metabolic History: Reports: Diabetes, Type II - Infectious Disease History Infectious Disease History: Reports: Chicken Pox, Measles - Past Surgical History GI Surgical History: Reports: Appendectomy, Cholecystectomy Musculoskeletal Surgical History: Reports: Arthroscopic Knee Social & Family History - Family History Family Medical History: Noncontributory Cardiac: Reports: CAD Respiratory: Reports: Asthma Neurological: Reports: MS - Tobacco Use Smoking Status *Q: Never Smoker - Caffeine Use Caffeine Use: Reports: Soda ED ROS GENERAL - Review of Systems Review Of Systems: Comprehensive ROS is negative, except as noted in HPI. ED EXAM, GENERAL - Physical Exam Exam: See Below (see dictation) Course - Vital Signs Last Recorded V/S: Last Vital Signs Temp 97.0 F 08/18/19 20:07 Pulse 81 08/18/19 20:07 Resp 16 08/18/19 20:07 BP 149/79 H 08/18/19 20:07 Pulse Ox 96 08/18/19 20:07 - Orders/Labs/Meds Orders: Active Orders 24 hr Category Date Time Status Admission Status [Patient Status] [ADT] Stat ADT 08/18/19 21:03 Ordered EKG Documentation Completion [RC] STAT Care 08/18/19 20:27 Active UA RFX JAY AND CULT IF INDIC [URIN] Stat Lab 08/18/19 20:27 Ordered Labs: Laboratory Tests 08/18/19 08/18/19 08/18/19 Range/Units 20:21 20:21 20:21 WBC 11.03 H (4.0-11.0) K/uL RBC 5.58 (4.50-5.90) M/uL Hgb 15.3 (13.0-17.0) g/dL Hct 43.5 (38.0-50.0) % MCV 78.0 L (80.0-98.0) fL MCH 27.4 (27.0-32.0) pg MCHC 35.2 (31.0-37.0) g/dL RDW Std Deviation 38.1 (28.0-62.0) fl RDW Coeff of [place] 14 (11.0-15.0) % Plt Count 298 (150-400) K/uL MPV 10.10 (7.40-12.00) fL Neut % (Auto) 59.6 (48.0-80.0) % Lymph % (Auto) 29.6 (16.0-40.0) % [place] % (Auto) 6.9 (0.0-15.0) % Eos % (Auto) 3.6 (0.0-7.0) % Baso % (Auto) 0.3 (0.0-1.5) % Neut # (Auto) 6.6 H (1.4-5.7) K/uL Lymph # (Auto) 3.3 H (0.6-2.4) K/uL [place] # (Auto) 0.8 (0.0-0.8) K/uL Eos # (Auto) 0.4 (0.0-0.7) K/uL Baso # (Auto) 0.0 (0.0-0.1) K/uL Sodium 138 (136-148) mmol/L Potassium 4.2 (3.5-5.1) mmol/L Chloride 100 (98-107) mmol/L Carbon Dioxide 29.6 (21.0-32.0) mmol/L BUN 10 (7.0-18.0) mg/dL Creatinine 1.1 (0.8-1.3) mg/dL Est Cr Clr Drug Dosing 73.20 mL/min Estimated GFR (MDRD) > 60.0 ml/min Glucose 225 H (74-106) mg/dL Calcium 8.8 (8.5-10.1) mg/dL Total Bilirubin 0.3 (0.2-1.0) mg/dL AST 27 (15-37) IU/L ALT 48 (14-63) IU/L Alkaline Phosphatase 84 (46-116) U/L Troponin I < 0.050 (0.000-0.056) ng/mL Total Protein 7.4 (6.4-8.2) g/dL Albumin 4.1 (3.4-5.0) g/dL Globulin 3.3 (2.6-4.0) g/dL Albumin/Globulin Ratio 1.2 (0.9-1.6) Lipase 204 (73-393) U/L Meds: Medications Discontinued Medications Generic Name Dose Route Start Last Admin Trade Name Hilda PRN Reason Stop Dose Admin Aspirin 324 mg 08/18/19 20:27 08/18/19 20:31 Aspirin PO 08/18/19 20:28 324 mg ONETIME ONE Administration Departure - Departure Time of Disposition: 21:05 Disposition: Refer to Observation Clinical Impression: Chest pain Qualifiers: Chest pain type: unspecified Qualified Code(s): R07.9 - Chest pain, unspecified - Discharge Information Referrals: Eulogio Su MD [Primary Care Provider] - Forms: ED Department Discharge - My Orders Last 24 Hours: My Active Orders 08/18/19 20:27 EKG Documentation Completion [RC] STAT UA RFX JAY AND CULT IF INDIC [URIN] Stat 08/18/19 21:03 Admission Status [Patient Status] [ADT] Stat - Assessment/Plan Last 24 Hours: My Active Orders 08/18/19 20:27 EKG Documentation Completion [RC] STAT UA RFX JAY AND CULT IF INDIC [URIN] Stat 08/18/19 21:03 Admission Status [Patient Status] [ADT] Stat
--- NOTE | 2019-08-18 20:54 | CR ---
Indication: Chest pain. Technique: A single AP portable view of the chest. Comparison: May 11, 2018. Findings: The heart is normal in size. The lungs are clear. No infiltrate, pleural effusion, or pneumothorax is identified. Impression: No acute cardiopulmonary process Dictated by Pam Henry MD @ Aug 18 2019 8:50PM Signed by Dr. Pam Henry @ Aug 18 2019 8:51PM
[2019-08-18 20:57] LABS: BLOOD UREA NITROGEN,BUN 10 mg/dL (7.0-18.0); CARBON DIOXIDE,CO2 29.6 mmol/L (21.0-32.0); CHLORIDE,CL 100 mmol/L (98-107); GLUCOSE RANDOM 225 mg/dL (74-106); POTASSIUM,K 4.2 mmol/L (3.5-5.1); SODIUM,NA 138 mmol/L (136-148)
--- NOTE | 2019-08-18 22:20 | PCM.HP.2 ---
H&P History of Present Illness - General Date of Service: 08/18/19 Admit Problem/Dx: Admission Diagnosis/Problem Admission Diagnosis/Problem Chest pain Source of Information: Patient - History of Present Illness Initial Comments - Free Text/Narative: Patient is a 51-year-old male with PMH of DM,CAD, [place] s/p Stent in 2018 presents to the ED with concern of intermittent chest pain since lunch today. Patient describes the pain as sharp in nature, located in the middle of his chest, some radiation to his left shoulder. Pain in intermittent and lasts few minutes. Patient denied N/V, abdominal pain, palpitations, fever, chills, diarrhea, bloody stools, bloody urine, dysuria. In the ER EKG and CXR were obtained which were unremarkable, Troponin was negative. Patient was admitted for management of chest pain. Onset of Symptoms: Reports: Today, Sudden Duration of Symptoms: Reports: Hour(s): Location: Reports: Chest Quality: Reports: Sharp Severity: Moderate Improves with: Reports: None Worsens with: Reports: None Associated Symptoms: Reports: No Other Symptoms chest Pain Score (Numeric/FACES): 0 - Related Data Allergies/Adverse Reactions: Allergies Allergy/AdvReac Type Severity Reaction Status Date / Time No Known Allergies Allergy Verified 08/18/19 20:11 Home Medications: Home Meds Aspirin [Barber Chewable Aspirin] 81 mg PO DAILY 10/24/14 [History] Fluticasone Propionate [Flonase] 1 spray NASBOTH QPM 10/24/14 [History] Insulin Aspart [NovoLOG] See Protocol SQ TID 10/24/14 [History] Lisinopril [Prinivil] 10 mg PO DAILY 10/24/14 [History] Meclizine [Antivert] 25 mg PO QID 10/24/14 [History] Triamterene/Hydrochlorothiazid [Triamterene-HCTZ 37.5-25 MG] 25 mg PO DAILY 03/31 [History] Vitamin E 1,000 units PO DAILY 10/24/14 [History] metFORMIN [Glucophage XR] 500 mg PO BID 10/24/14 [History] Rosuvastatin [Crestor] 20 mg PO DAILY 11/23/17 [History] Clopidogrel [Plavix] 75 mg PO DAILY 05/11/18 [History] Insulin Degludec [Tresiba Flextouch U-100] 50 units SQ PCLUNCH 05/11/18 [History ] Metoprolol Tartrate 25 mg PO BID 05/11/18 [History] Ranitidine [Zantac] 150 mg PO BEDTIME 05/11/18 [History] Past Medical History HEENT History: Reports: Hard of Hearing 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 Cardiovascular History: Reports: High Cholesterol, Hypertension, Stents Other Cardiovascular History: SD on Endocrine/Metabolic History: Reports: Diabetes, Type II - Infectious Disease History Infectious Disease History: Reports: Chicken Pox, Measles - Past Surgical History GI Surgical History: Reports: Appendectomy, Cholecystectomy Musculoskeletal Surgical History: Reports: Arthroscopic Knee Social & Family History - Family History Family Medical History: Noncontributory Cardiac: Reports: CAD Respiratory: Reports: Asthma Neurological: Reports: MS - Tobacco Use Smoking Status *Q: Never Smoker - Caffeine Use Caffeine Use: Reports: Soda H&P Review of Systems - Review of Systems: Review Of Systems: See Below General: Denies: Fever, Chills, Malaise HEENT: Denies: Dysphasia Pulmonary: Denies: Shortness of Breath, Wheezing, Cough, Sputum Cardiovascular: Reports: Chest Pain. Denies: Palpitations, Dyspnea on Exertion , Orthopnea, PND Gastrointestinal: Denies: Abdominal Pain, Anorexia, Black Stool Genitourinary: Denies: Dysuria, Frequency, Burning Musculoskeletal: Denies: Neck Pain, Shoulder Pain, Arm Pain Psychiatric: Denies: Confusion, Depression, Mood Lability Neurological: Denies: Confusion, Headache Exam - Exam Exam: See Below - Vital Signs Vital Signs: Last Vital Signs Temp 36.3 C 08/18/19 22:06 Pulse 73 08/18/19 22:06 Resp 17 08/18/19 22:06 BP 118/74 08/18/19 22:06 Pulse Ox 96 08/18/19 22:06 Weight: 97.522 kg - Exam General: Alert, Oriented Neck: Supple, Trachea Midline Lungs: Clear to Auscultation, Normal Respiratory Effort Cardiovascular: Regular Rate, Regular Rhythm, Normal S1, Normal S2 GI/Abdominal Exam: Normal Bowel Sounds, Soft, Non-Tender Extremities: Normal Inspection, Normal Range of Motion Peripheral Pulses: 2+: Dorsalis Pedis (L), Dorsalis Pedis (R) - Patient Data Lab Results Last 24 hrs: Laboratory Results - last 24 hr 08/18/19 08/18/19 08/18/19 Range/Units 20:21 20:21 20:21 WBC 11.03 H (4.0-11.0) K/uL RBC 5.58 (4.50-5.90) M/uL Hgb 15.3 (13.0-17.0) g/dL Hct 43.5 (38.0-50.0) % MCV 78.0 L (80.0-98.0) fL MCH 27.4 (27.0-32.0) pg MCHC 35.2 (31.0-37.0) g/dL RDW Std Deviation 38.1 (28.0-62.0) fl RDW Coeff of [place] 14 (11.0-15.0) % Plt Count 298 (150-400) K/uL MPV 10.10 (7.40-12.00) fL Neut % (Auto) 59.6 (48.0-80.0) % Lymph % (Auto) 29.6 (16.0-40.0) % [place] % (Auto) 6.9 (0.0-15.0) % Eos % (Auto) 3.6 (0.0-7.0) % Baso % (Auto) 0.3 (0.0-1.5) % Neut # (Auto) 6.6 H (1.4-5.7) K/uL Lymph # (Auto) 3.3 H (0.6-2.4) K/uL [place] # (Auto) 0.8 (0.0-0.8) K/uL Eos # (Auto) 0.4 (0.0-0.7) K/uL Baso # (Auto) 0.0 (0.0-0.1) K/uL Sodium 138 (136-148) mmol/L Potassium 4.2 (3.5-5.1) mmol/L Chloride 100 (98-107) mmol/L Carbon Dioxide 29.6 (21.0-32.0) mmol/L BUN 10 (7.0-18.0) mg/dL Creatinine 1.1 (0.8-1.3) mg/dL Est Cr Clr Drug Dosing 73.20 mL/min Estimated GFR (MDRD) > 60.0 ml/min Glucose 225 H (74-106) mg/dL Calcium 8.8 (8.5-10.1) mg/dL Total Bilirubin 0.3 (0.2-1.0) mg/dL AST 27 (15-37) IU/L ALT 48 (14-63) IU/L Alkaline Phosphatase 84 (46-116) U/L Troponin I < 0.050 (0.000-0.056) ng/mL Total Protein 7.4 (6.4-8.2) g/dL Albumin 4.1 (3.4-5.0) g/dL Globulin 3.3 (2.6-4.0) g/dL Albumin/Globulin Ratio 1.2 (0.9-1.6) Lipase 204 (73-393) U/L Result Diagrams: 08/18/19 20:21 08/18/19 20:21 *Q Meaningful Use (ADM) - VTE Risk Assess *Q Each Risk Factor Represents 1 Point: Age 41 - 59 years, Obesity ( BMI > 25 kg/m2 ) Total Score 1 Point Risk Factors: 2 - Problem List (1) CAD (coronary artery disease) SNOMED Code(s): 46957790 ICD Code: I25.10 - ATHSCL HEART DISEASE OF [place] CORONARY ARTERY W/O ANG PCTRS Status: Acute Current Visit: Yes (2) Chest pain SNOMED Code(s): 22305471 ICD Code: R07.9 - CHEST PAIN, UNSPECIFIED Status: Acute Current Visit: Yes Qualifiers: Chest pain type: unspecified Qualified Code(s): R07.9 - Chest pain, unspecified (3) Diabetes mellitus SNOMED Code(s): 19552497 ICD Code: E11.9 - TYPE 2 DIABETES MELLITUS WITHOUT COMPLICATIONS Status: Acute Current Visit: Yes (4) HTN (hypertension) SNOMED Code(s): 84162946 ICD Code: I10 - ESSENTIAL (PRIMARY) HYPERTENSION Status: Acute Current Visit: Yes Problem List Initiated/Reviewed/Updated: Yes Orders Last 24hrs: Active Orders 24 hr Category Date Time Status Admission Status [Patient Status] [ADT] Stat ADT 08/18/19 21:03 Active Blood Glucose Check, Bedside [RC] WITHMEALSANDBED Care 08/18/19 22:09 Ordered EKG Documentation Completion [RC] STAT Care 08/18/19 20:27 Active Oxygen Therapy [RC] PRN Care 08/18/19 22:09 Ordered Telemetry Monitoring [Cardiac Monitoring] [RC] . Care 08/18/19 21:47 Active DIRECTED VTE/DVT Education [RC] PER UNIT ROUTINE Care 08/18/19 22:09 Ordered Vital Signs [RC] Q4H Care 08/18/19 22:09 Ordered Heart Healthy Diet [DIET] Diet 08/18/19 Dinner Ordered TROPONIN I [CHEM] Q3H Lab 08/18/19 23:20 Ordered TROPONIN I [CHEM] Q3H Lab 08/19/19 02:20 Ordered UA RFX JAY AND CULT IF INDIC [URIN] Stat Lab 08/18/19 20:27 Ordered Aspirin Med 08/19/19 09:00 Ordered 81 mg PO DAILY Clopidogrel [Plavix] Med 08/19/19 09:00 Ordered 75 mg PO DAILY Fluticasone Propionate [Flonase] Med 08/19/19 18:00 Ordered 1 spray NASBOTH QPM Insulin Aspart [NovoLOG] Med 08/18/19 22:15 Ordered See Protocol SUBCUT TID Insulin Degludec [Tresiba Flextouch U-100] Med 08/19/19 12:30 Ordered 50 units SQ PCLUNCH Lisinopril [Prinivil] Med 08/19/19 09:00 Ordered 10 mg PO DAILY Meclizine [Antivert] Med 08/19/19 00:00 Ordered 25 mg PO QID Ranitidine Med 08/19/19 21:00 Ordered 150 mg PO BEDTIME Rosuvastatin [Crestor] Med 08/19/19 09:00 Ordered 20 mg PO DAILY Resuscitation Status Routine Resus Stat 08/18/19 22:09 Ordered Medication Orders Aspirin (Aspirin) 81 mg PO DAILY VANDA Clopidogrel Bisulfate (Plavix) 75 mg PO DAILY VANDA Fluticasone Propionate (Flonase) gm NASBOTH QPM VANDA Lisinopril (Prinivil) 10 mg PO DAILY VANDA Meclizine HCl (Antivert) 25 mg PO QID VANDA Non-Formulary Medication (Insulin Degludec [Tresiba Flextouch U-100]) 50 units SQ PCLUNCH VANDA Non-Formulary Medication (Ranitidine) 150 mg PO BEDTIME VANDA Non-Formulary Medication (Rosuvastatin [Crestor]) 20 mg PO DAILY VANDA Assessment/Plan Comment:: 59 y/o M with PMH of CAD s/p stents on ASA and Plavix comes in for evaluation of chest pain EKG on admission was unremarkable for acute infarction, CXR unremarkable 1st trop was negative Will continue to trend troponin cont home Meds including ASA, plavix SSI and long acting insulin Will check HbA1c, lipid profile, TSH Monitor and replete electrolytes
[2019-08-18] MEDS: Insulin Aspart 100 Units/ML 3 ML Pen SUBCUT SCH (23:07)
[2019-08-18] MEDS: Meclizine 25 MG Tab PO SCH (23:07)
[2019-08-19 02:40] LABS: HEMOGLOBIN A1C 8.3 % (4.5-6.2)
[2019-08-19 02:58] LABS: BLOOD UREA NITROGEN,BUN 10 mg/dL (7.0-18.0); CARBON DIOXIDE,CO2 25.5 mmol/L (21.0-32.0); CHLORIDE,CL 101 mmol/L (98-107); GLUCOSE RANDOM 228 mg/dL (74-106); POTASSIUM,K 3.8 mmol/L (3.5-5.1); SODIUM,NA 137 mmol/L (136-148)
[2019-08-19] MEDS ORDERED: Insulin Aspart 100 Units/ML 3 ML Pen SUBCUT SCH (06:00)
[2019-08-19] MEDS: Meclizine 25 MG Tab PO SCH ×2 (06:54→12:17)
[2019-08-19] MEDS: Insulin Aspart 100 Units/ML 3 ML Pen SUBCUT SCH ×2 (06:58→11:45)
[2019-08-19] MEDS ORDERED: Magnesium Sulfate/Water 2 GM in Premix Bag 1 BAG IV ONE (07:42)
[2019-08-19] MEDS ORDERED: Rosuvastatin 10 MG Tab PO SCH (09:00)
[2019-08-19] MEDS ORDERED: Clopidogrel 75 MG Tab PO SCH (09:00)
[2019-08-19] MEDS ORDERED: Aspirin 81 MG Tab.Chew PO SCH (09:00)
[2019-08-19] MEDS ORDERED: Lisinopril 10 MG Tab PO SCH (09:00)
--- NOTE | 2019-08-19 11:22 | PCM.DCSUM1 ---
Discharge Summary - Hospital Course Free Text/Narrative:: 59-year-old male admitted for chest pain and ACS rule out. He has a PMH of [place] s/ p stents in 2018, DM type II and hypertension. He presents with substernal, intermittent sharp chest pain that radiated to between his shoulders and left axilla. He reports the pain started while he was eating and last for a few seconds. It was unrelated to activity. CXR negative. Troponins were trended and negative x 3. He had no recurrence of chest pain during his hospitalization. He reported being asymptomatic on day of discharge. He was advised to take his long -acting insulin Tresiba at bedtime instead of during lunch time. He was advised to follow-up with [facility] and his PCP. Referral for diabetic education was also placed. - Discharge Data Discharge Date: 08/19/19 Discharge Disposition: Home, Self-Care 01 Condition: Good - Referral to Home Health Primary Care Physician: Eulogio Su MD - Patient Instructions Diet: Heart Healthy Diet Activity: As Tolerated Notify Provider of: Fever, Increased Pain, Swelling and Redness, Drainage, Nausea and/or Vomiting - Discharge Plan *PRESCRIPTION DRUG MONITORING PROGRAM REVIEWED*: Not Applicable *COPY OF PRESCRIPTION DRUG MONITORING REPORT IN PATIENT EDY: Not Applicable Home Medications: Home Meds Aspirin [Barber Chewable Aspirin] 81 mg PO DAILY 10/24/14 [History] Fluticasone Propionate [Flonase] 1 spray NASBOTH BID 10/24/14 [History] Insulin Aspart [NovoLOG] See Protocol SQ TID 10/24/14 [History] Lisinopril [Prinivil] 10 mg PO DAILY 10/24/14 [History] Meclizine [Antivert] 25 mg PO QID 10/24/14 [History] Triamterene/Hydrochlorothiazid [Triamterene-HCTZ 37.5-25 MG] 25 mg PO DAILY 03/31 [History] Vitamin E 1,000 units PO DAILY 10/24/14 [History] metFORMIN [Glucophage XR] 500 mg PO BID 10/24/14 [History] Rosuvastatin [Crestor] 20 mg PO DAILY 11/23/17 [History] Clopidogrel [Plavix] 75 mg PO DAILY 05/11/18 [History] Insulin Degludec [Tresiba Flextouch U-100] 50 units SQ PCLUNCH 05/11/18 [History ] Metoprolol Tartrate 25 mg PO BID 05/11/18 [History] Ranitidine [Zantac] 150 mg PO BEDTIME 05/11/18 [History] Patient Handouts: Nonspecific Chest Pain, [id number] Referrals: Kelli Elias MD [Physician] - 09/19/19 9:30 am Eulogio Su MD [Primary Care Provider] - 08/26/19 10:00 am - Discharge Summary/Plan Comment DC Time >30 min.: No - Patient Data Vitals - Most Recent: Last Vital Signs Temp 96.9 F 08/19/19 08:00 Pulse 82 08/19/19 08:00 Resp 17 08/19/19 08:00 BP 131/89 08/19/19 08:52 Pulse Ox 97 08/19/19 08:00 Weight - Most Recent: 215 lb I&O - Last 24 hours: Intake & Output 08/18/19 08/19/19 08/19/19 22:59 06:59 14:59 Intake Total 300 50 Output Total 400 Balance -100 50 Lab Results - Last 24 hrs: Laboratory Results - last 24 hr 08/18/19 08/18/19 08/18/19 Range/Units 20:21 20:21 20:21 WBC 11.03 H (4.0-11.0) K/uL RBC 5.58 (4.50-5.90) M/uL Hgb 15.3 (13.0-17.0) g/dL Hct 43.5 (38.0-50.0) % MCV 78.0 L (80.0-98.0) fL MCH 27.4 (27.0-32.0) pg MCHC 35.2 (31.0-37.0) g/dL RDW Std Deviation 38.1 (28.0-62.0) fl RDW Coeff of [place] 14 (11.0-15.0) % Plt Count 298 (150-400) K/uL MPV 10.10 (7.40-12.00) fL Neut % (Auto) 59.6 (48.0-80.0) % Lymph % (Auto) 29.6 (16.0-40.0) % [place] % (Auto) 6.9 (0.0-15.0) % Eos % (Auto) 3.6 (0.0-7.0) % Baso % (Auto) 0.3 (0.0-1.5) % Neut # (Auto) 6.6 H (1.4-5.7) K/uL Lymph # (Auto) 3.3 H (0.6-2.4) K/uL [place] # (Auto) 0.8 (0.0-0.8) K/uL Eos # (Auto) 0.4 (0.0-0.7) K/uL Baso # (Auto) 0.0 (0.0-0.1) K/uL Sodium 138 (136-148) mmol/L Potassium 4.2 (3.5-5.1) mmol/L Chloride 100 (98-107) mmol/L Carbon Dioxide 29.6 (21.0-32.0) mmol/L BUN 10 (7.0-18.0) mg/dL Creatinine 1.1 (0.8-1.3) mg/dL Est Cr Clr Drug Dosing 73.20 mL/min Estimated GFR (MDRD) > 60.0 ml/min Glucose 225 H (74-106) mg/dL POC Glucose (60-110) mg/dL Hemoglobin A1c (4.5-6.2) % Calcium 8.8 (8.5-10.1) mg/dL Phosphorus (2.6-4.7) mg/dL Magnesium (1.8-2.4) mg/dL Total Bilirubin 0.3 (0.2-1.0) mg/dL AST 27 (15-37) IU/L ALT 48 (14-63) IU/L Alkaline Phosphatase 84 (46-116) U/L Troponin I < 0.050 (0.000-0.056) ng/mL Total Protein 7.4 (6.4-8.2) g/dL Albumin 4.1 (3.4-5.0) g/dL Globulin 3.3 (2.6-4.0) g/dL Albumin/Globulin Ratio 1.2 (0.9-1.6) Triglycerides (0-200) mg/dL Cholesterol (50-200) mg/dL LDL Cholesterol, Calc (60-180) mg/dL VLDL Cholesterol (5-55) mg/dL HDL Cholesterol (40-60) mg/dL Cholesterol/HDL Ratio (3.3-6.0) Lipase 204 (73-393) U/L TSH 3rd Generation (0.36-3.74) uIU/mL Urine Color Urine Appearance Urine pH (5.0-8.0) Ur Specific [place] (1.001-1.035) Urine Protein (NEGATIVE) mg/dL Urine Glucose (UA) (NEGATIVE) mg/dL Urine Ketones (NEGATIVE) mg/dL Urine Occult Blood (NEGATIVE) Urine Nitrite (NEGATIVE) Urine Bilirubin (NEGATIVE) Urine Urobilinogen (<2.0) EU/dL Ur Leukocyte Esterase (NEGATIVE) 08/18/19 08/18/19 08/18/19 Range/Units 22:50 23:20 23:45 WBC (4.0-11.0) K/uL RBC (4.50-5.90) M/uL Hgb (13.0-17.0) g/dL Hct (38.0-50.0) % MCV (80.0-98.0) fL MCH (27.0-32.0) pg MCHC (31.0-37.0) g/dL RDW Std Deviation (28.0-62.0) fl RDW Coeff of [place] (11.0-15.0) % Plt Count (150-400) K/uL MPV (7.40-12.00) fL Neut % (Auto) (48.0-80.0) % Lymph % (Auto) (16.0-40.0) % [place] % (Auto) (0.0-15.0) % Eos % (Auto) (0.0-7.0) % Baso % (Auto) (0.0-1.5) % Neut # (Auto) (1.4-5.7) K/uL Lymph # (Auto) (0.6-2.4) K/uL [place] # (Auto) (0.0-0.8) K/uL Eos # (Auto) (0.0-0.7) K/uL Baso # (Auto) (0.0-0.1) K/uL Sodium (136-148) mmol/L Potassium (3.5-5.1) mmol/L Chloride (98-107) mmol/L Carbon Dioxide (21.0-32.0) mmol/L BUN (7.0-18.0) mg/dL Creatinine (0.8-1.3) mg/dL Est Cr Clr Drug Dosing mL/min Estimated GFR (MDRD) ml/min Glucose (74-106) mg/dL POC Glucose 229 H (60-110) mg/dL Hemoglobin A1c (4.5-6.2) % Calcium (8.5-10.1) mg/dL Phosphorus (2.6-4.7) mg/dL Magnesium (1.8-2.4) mg/dL Total Bilirubin (0.2-1.0) mg/dL AST (15-37) IU/L ALT (14-63) IU/L Alkaline Phosphatase (46-116) U/L Troponin I < 0.050 (0.000-0.056) ng/mL Total Protein (6.4-8.2) g/dL Albumin (3.4-5.0) g/dL Globulin (2.6-4.0) g/dL Albumin/Globulin Ratio (0.9-1.6) Triglycerides (0-200) mg/dL Cholesterol (50-200) mg/dL LDL Cholesterol, Calc (60-180) mg/dL VLDL Cholesterol (5-55) mg/dL HDL Cholesterol (40-60) mg/dL Cholesterol/HDL Ratio (3.3-6.0) Lipase (73-393) U/L TSH 3rd Generation (0.36-3.74) uIU/mL Urine Color YELLOW Urine Appearance CLEAR Urine pH 5.5 (5.0-8.0) Ur Specific [place] 1.020 (1.001-1.035) Urine Protein NEGATIVE (NEGATIVE) mg/dL Urine Glucose (UA) 250 H (NEGATIVE) mg/dL Urine Ketones NEGATIVE (NEGATIVE) mg/dL Urine Occult Blood NEGATIVE (NEGATIVE) Urine Nitrite NEGATIVE (NEGATIVE) Urine Bilirubin NEGATIVE (NEGATIVE) Urine Urobilinogen 0.2 (<2.0) EU/dL Ur Leukocyte Esterase NEGATIVE (NEGATIVE) 08/19/19 08/19/19 08/19/19 Range/Units 02:25 02:25 02:25 WBC 12.28 H (4.0-11.0) K/uL RBC 5.35 (4.50-5.90) M/uL Hgb 14.6 (13.0-17.0) g/dL Hct 41.1 (38.0-50.0) % MCV 76.8 L (80.0-98.0) fL MCH 27.3 (27.0-32.0) pg MCHC 35.5 (31.0-37.0) g/dL RDW Std Deviation 37.0 (28.0-62.0) fl RDW Coeff of [place] 13 (11.0-15.0) % Plt Count 276 (150-400) K/uL MPV 10.00 (7.40-12.00) fL Neut % (Auto) 70.9 (48.0-80.0) % Lymph % (Auto) 21.5 (16.0-40.0) % [place] % (Auto) 5.5 (0.0-15.0) % Eos % (Auto) 2.0 (0.0-7.0) % Baso % (Auto) 0.1 (0.0-1.5) % Neut # (Auto) 8.7 H (1.4-5.7) K/uL Lymph # (Auto) 2.6 H (0.6-2.4) K/uL [place] # (Auto) 0.7 (0.0-0.8) K/uL Eos # (Auto) 0.2 (0.0-0.7) K/uL Baso # (Auto) 0.0 (0.0-0.1) K/uL Sodium 137 (136-148) mmol/L Potassium 3.8 (3.5-5.1) mmol/L Chloride 101 (98-107) mmol/L Carbon Dioxide 25.5 (21.0-32.0) mmol/L BUN 10 (7.0-18.0) mg/dL Creatinine 0.9 (0.8-1.3) mg/dL Est Cr Clr Drug Dosing 89.47 mL/min Estimated GFR (MDRD) > 60.0 ml/min Glucose 228 H (74-106) mg/dL POC Glucose (60-110) mg/dL Hemoglobin A1c (4.5-6.2) % Calcium 8.8 (8.5-10.1) mg/dL Phosphorus 3.6 (2.6-4.7) mg/dL Magnesium 1.6 L (1.8-2.4) mg/dL Total Bilirubin (0.2-1.0) mg/dL AST (15-37) IU/L ALT (14-63) IU/L Alkaline Phosphatase (46-116) U/L Troponin I < 0.050 (0.000-0.056) ng/mL Total Protein (6.4-8.2) g/dL Albumin (3.4-5.0) g/dL Globulin (2.6-4.0) g/dL Albumin/Globulin Ratio (0.9-1.6) Triglycerides 74 (0-200) mg/dL Cholesterol 167 (50-200) mg/dL LDL Cholesterol, Calc 104 (60-180) mg/dL VLDL Cholesterol 14 (5-55) mg/dL HDL Cholesterol 48 (40-60) mg/dL Cholesterol/HDL Ratio 3.5 (3.3-6.0) Lipase (73-393) U/L TSH 3rd Generation 4.87 H (0.36-3.74) uIU/mL Urine Color Urine Appearance Urine pH (5.0-8.0) Ur Specific [place] (1.001-1.035) Urine Protein (NEGATIVE) mg/dL Urine Glucose (UA) (NEGATIVE) mg/dL Urine Ketones (NEGATIVE) mg/dL Urine Occult Blood (NEGATIVE) Urine Nitrite (NEGATIVE) Urine Bilirubin (NEGATIVE) Urine Urobilinogen (<2.0) EU/dL Ur Leukocyte Esterase (NEGATIVE) 08/19/19 08/19/19 Range/Units 02:25 05:57 WBC (4.0-11.0) K/uL RBC (4.50-5.90) M/uL Hgb (13.0-17.0) g/dL Hct (38.0-50.0) % MCV (80.0-98.0) fL MCH (27.0-32.0) pg MCHC (31.0-37.0) g/dL RDW Std Deviation (28.0-62.0) fl RDW Coeff of [place] (11.0-15.0) % Plt Count (150-400) K/uL MPV (7.40-12.00) fL Neut % (Auto) (48.0-80.0) % Lymph % (Auto) (16.0-40.0) % [place] % (Auto) (0.0-15.0) % Eos % (Auto) (0.0-7.0) % Baso % (Auto) (0.0-1.5) % Neut # (Auto) (1.4-5.7) K/uL Lymph # (Auto) (0.6-2.4) K/uL [place] # (Auto) (0.0-0.8) K/uL Eos # (Auto) (0.0-0.7) K/uL Baso # (Auto) (0.0-0.1) K/uL Sodium (136-148) mmol/L Potassium (3.5-5.1) mmol/L Chloride (98-107) mmol/L Carbon Dioxide (21.0-32.0) mmol/L BUN (7.0-18.0) mg/dL Creatinine (0.8-1.3) mg/dL Est Cr Clr Drug Dosing mL/min Estimated GFR (MDRD) ml/min Glucose (74-106) mg/dL POC Glucose 151 H (60-110) mg/dL Hemoglobin A1c 8.3 H (4.5-6.2) % Calcium (8.5-10.1) mg/dL Phosphorus (2.6-4.7) mg/dL Magnesium (1.8-2.4) mg/dL Total Bilirubin (0.2-1.0) mg/dL AST (15-37) IU/L ALT (14-63) IU/L Alkaline Phosphatase (46-116) U/L Troponin I (0.000-0.056) ng/mL Total Protein (6.4-8.2) g/dL Albumin (3.4-5.0) g/dL Globulin (2.6-4.0) g/dL Albumin/Globulin Ratio (0.9-1.6) Triglycerides (0-200) mg/dL Cholesterol (50-200) mg/dL LDL Cholesterol, Calc (60-180) mg/dL VLDL Cholesterol (5-55) mg/dL HDL Cholesterol (40-60) mg/dL Cholesterol/HDL Ratio (3.3-6.0) Lipase (73-393) U/L TSH 3rd Generation (0.36-3.74) uIU/mL Urine Color Urine Appearance Urine pH (5.0-8.0) Ur Specific [place] (1.001-1.035) Urine Protein (NEGATIVE) mg/dL Urine Glucose (UA) (NEGATIVE) mg/dL Urine Ketones (NEGATIVE) mg/dL Urine Occult Blood (NEGATIVE) Urine Nitrite (NEGATIVE) Urine Bilirubin (NEGATIVE) Urine Urobilinogen (<2.0) EU/dL Ur Leukocyte Esterase (NEGATIVE) Med Orders - Current: Current Medications Aspirin (Aspirin) 81 mg PO DAILY [facility] Last Admin: 08/19/19 08:44 Dose: 81 mg Clopidogrel Bisulfate (Plavix) 75 mg PO DAILY [facility] Last Admin: 08/19/19 08:44 Dose: 75 mg Famotidine (Pepcid) 20 mg PO BEDTIME [facility] Fluticasone Propionate (Flonase) 0 gm NASBOTH QPM [facility] Insulin Aspart (Novolog) 0 unit SUBCUT TID [facility]; Protocol Last Admin: 08/19/19 06:58 Dose: 1 units Lisinopril (Prinivil) 10 mg PO DAILY [facility] Last Admin: 08/19/19 08:52 Dose: 10 mg Meclizine HCl (Antivert) 25 mg PO QID [facility] Last Admin: 08/19/19 06:54 Dose: 25 mg Insulin Degludec [ Tresiba Flextouch U- 100] 50 Units 0 each SUBCUT PCLUNCH [facility] Rosuvastatin Calcium (Crestor) 20 mg PO DAILY [facility] Last Admin: 08/19/19 08:44 Dose: 20 mg Discontinued Medications Aspirin (Aspirin) 324 mg PO ONETIME ONE Stop: 08/18/19 20:28 Last Admin: 08/18/19 20:31 Dose: 324 mg Magnesium Sulfate 2 gm/ Premix 50 mls @ 25 mls/hr IV ONETIME ONE Stop: 08/19/19 09:41 Last Admin: 08/19/19 08:37 Dose: 25 mls/hr Insulin Aspart (Novolog) 0 unit SUBCUT TID [facility]; Protocol
[2019-08-19 11:47] VITALS: BP 134/74; PULSE 83
[2019-08-19] MEDS ORDERED: INSULIN DEGLUDEC 50 UNIT SUBCUT SCH (12:30)
[2019-08-19] MEDS ORDERED: Fluticasone Propionate Nasal Spray 16 GM Bottle NASBOTH SCH (18:00)
[2019-08-19] MEDS ORDERED: Famotidine 20 MG Tab PO SCH (21:00)
== END 2019-08-19 12:30 | disposition home or self-care (01) ==
LOC: MW.ED 20:04 → MW.MS 21:03
PROVIDERS: ADMIT Student in an Organized Health Care Education/Training Program; ATTEND Student in an Organized Health Care Education/Training Program
DX: R07.2 Precordial pain (principal); I25.10 Atherosclerotic heart disease of native coronary artery without angina pectoris; E11.9 Type 2 diabetes mellitus without complications; I10 Essential (primary) hypertension; Z95.5 Presence of coronary angioplasty implant and graft; Z79.82 Long term (current) use of aspirin; Z79.02 Long term (current) use of antithrombotics/antiplatelets; Z79.4 Long term (current) use of insulin; E78.00 Pure hypercholesterolemia, unspecified
CPT/HCPCS: 36415; 71045; 80048; 80053; 80061; 81003; 82962; 83036; 83690; 83735; 84100; 84443; 84484; 85025; 93005; 96365; 96366; 99285; A9270; G0378; J1815; J3475

== ENCOUNTER 2021-12-17 14:30 | Emergency (ER) | payer MEDICARE ==
[2021-12-17] MEDS ORDERED: Lidocaine 1% PF 2 ML SDV INJECT ONE (14:49)
[2021-12-17] MEDS ORDERED: Cephalexin 500 MG Cap PO ONE (15:11)
[2021-12-17] MEDS ORDERED: Bacitracin Oint 1 GM U/D Packet TOP ONE (15:19)
[2021-12-17] MEDS ORDERED: Doxycycline 100 MG Cap PO ONE (15:19)
[2021-12-17 19:18] VITALS: BP 126/70; PULSE 66
== END 2021-12-17 16:00 | disposition home or self-care (01) ==
LOC: MW.ED 14:30
DX: L02.212 Cutaneous abscess of back [any part, except buttock and flank] (principal); E11.9 Type 2 diabetes mellitus without complications; I10 Essential (primary) hypertension; E78.00 Pure hypercholesterolemia, unspecified; Z79.4 Long term (current) use of insulin; Z88.6 Allergy status to analgesic agent; Z79.84 Long term (current) use of oral hypoglycemic drugs
CPT/HCPCS: 10060; 99282; A9270; 99281

== ENCOUNTER 2022-07-31 18:43 | Emergency (ER) | payer MEDICARE ==
[2022-07-31 20:48] VITALS: BP 132/68; PULSE 85
== END 2022-07-31 20:47 | disposition home or self-care (01) ==
LOC: MW.ED 18:43
DX: H66.001 Acute suppurative otitis media without spontaneous rupture of ear drum, right ear (principal); J01.10 Acute frontal sinusitis, unspecified; K08.89 Other specified disorders of teeth and supporting structures; E78.00 Pure hypercholesterolemia, unspecified; I10 Essential (primary) hypertension; E11.9 Type 2 diabetes mellitus without complications; Z95.5 Presence of coronary angioplasty implant and graft; Z88.6 Allergy status to analgesic agent; Z79.4 Long term (current) use of insulin; Z79.02 Long term (current) use of antithrombotics/antiplatelets; Z79.82 Long term (current) use of aspirin; Z79.899 Other long term (current) drug therapy
CPT/HCPCS: 99282

== ENCOUNTER 2023-06-07 19:27 | Emergency (ER) | payer MEDICARE ==
[2023-06-07] MEDS ORDERED: Sodium Chloride 0.9% 2.5 ML Syringe FLUSH PRN (19:44)
[2023-06-07] MEDS ORDERED: Sodium Chloride 0.9% 10 ML Syringe FLUSH PRN (19:44)
[2023-06-07 19:51] LABS: BASOPHILS PERCENT AUTO 0.3 % (0.0-1.5); EOSINOPHILS ABSOLUTE AUTO 0.5 K/uL (0.0-0.7); EOSINOPHILS PERCENT AUTO 5.2 % (0.0-7.0); HEMATOCRIT 43.4 % (38.0-50.0); HEMOGLOBIN 14.7 g/dL (13.0-17.0); LYMPHOCYTES ABSOLUTE AUTO 2.6 K/uL (0.6-2.4); LYMPHOCYTES PERCENT AUTO 26.7 % (16.0-40.0); MEAN CORPUSCULAR HEMOGLOBIN 27.2 pg (27.0-32.0); MEAN CORPUSCULAR HGB CONC 33.9 g/dL (31.0-37.0); MEAN CORPUSCULAR VOLUME 80.4 fL (80.0-98.0); MONOCYTES ABSOLUTE AUTO 0.6 K/uL (0.0-0.8); NEUTROPHILS PERCENT AUTO 61.8 % (48.0-80.0); NRBC ABSOLUTE 0 K/uL; PLATELET COUNT,PLT 322 K/uL (150-400); WHITE BLOOD CELL COUNT,WBC 9.74 K/uL (4.0-11.0)
[2023-06-07] MEDS ORDERED: Acetaminophen 500 MG Tab PO STA (20:04)
[2023-06-07] MEDS ORDERED: Lidocaine 5% Oint 35.44 GM Tube TOP STA (20:04)
[2023-06-07] MEDS ORDERED: Lidocaine 4% 1 each Patch TOP STA (20:07)
[2023-06-07 20:18] LABS: A/G RATIO 1.2 (0.9-1.6); ALANINE AMINOTRANSFERASE,ALT 21 IU/L (14-63); ALBUMIN 3.9 g/dL (3.4-5.0); ALKALINE PHOSPHATASE 84 U/L (46-116); ASPARTATE AMNIOTRANSFERASE,AST 14 IU/L (15-37); BILIRUBIN TOTAL 0.4 mg/dL (0.2-1.0); BLOOD UREA NITROGEN,BUN 8 mg/dL (7.0-18.0); CALCIUM 8.8 mg/dL (8.5-10.1); CARBON DIOXIDE,CO2 29.9 mmol/L (21.0-32.0); CHLORIDE,CL 100 mmol/L (98-107); GLUCOSE RANDOM 273 mg/dL (74-106); LIPASE 62 U/L (16-77); POTASSIUM,K 3.8 mmol/L (3.5-5.1); PROTEIN TOTAL,TP 7.1 g/dL (6.4-8.2); SODIUM,NA 135 mmol/L (136-148)
[2023-06-07 20:22] LABS: ESTIMATED GFR 85 mL/min (>60); MAGNESIUM 1.6 mg/dL (1.8-2.4)
[2023-06-07] MEDS ORDERED: Magnesium Oxide 400 MG Tab PO STA (20:26)
[2023-06-07 22:21] VITALS: BP 137/70; PULSE 67
== END 2023-06-07 22:19 | disposition home or self-care (01) ==
LOC: MW.ED 19:27
DX: R07.89 Other chest pain (principal); E11.9 Type 2 diabetes mellitus without complications; I25.2 Old myocardial infarction; I10 Essential (primary) hypertension
CPT/HCPCS: 36415; 71046; 80053; 83690; 83735; 84484; 85025; 93005; 99285; A9270; J3490; 93010; 99283

== ENCOUNTER 2023-12-16 18:30 | Emergency (ER) | payer MEDICARE ==
[2023-12-16] MEDS: Aspirin 81 MG Tab.Chew PO ONE (18:51)
[2023-12-16 19:19] LABS: BASOPHILS ABSOLUTE AUTO 0.04 K/uL (0.00-0.20); BASOPHILS PERCENT AUTO 0.3 % (0.0-1.0); EOSINOPHILS ABSOLUTE AUTO 0.24 K/uL (0.00-0.45); EOSINOPHILS PERCENT AUTO 1.8 % (0.0-6.0); HEMATOCRIT 41.5 % (42.0-52.0); HEMOGLOBIN 14.4 g/dL (14.0-18.0); IMMATURE GRAN ABSOLUTE AUTO 0.03 K/uL (0.00-0.05); IMMATURE GRAN PERCENT AUTO 0.2 % (0.0-0.4); LYMPHOCYTES ABSOLUTE AUTO 2.29 K/uL (1.00-4.80); LYMPHOCYTES PERCENT AUTO 17.3 % (24.0-44.0); MEAN CORPUSCULAR HEMOGLOBIN 27.1 pg (28.0-32.0); MEAN CORPUSCULAR HGB CONC 34.7 g/dL (32.0-36.0); MEAN CORPUSCULAR VOLUME 78.2 fL (83.0-99.0); MEAN PLATELET VOLUME 9.6 fL (9.4-12.4); MONOCYTES ABSOLUTE AUTO 0.71 K/uL (0.00-0.80); MONOCYTES PERCENT AUTO 5.4 % (0.0-8.0); NEUTROPHILS ABSOLUTE AUTO 9.92 K/uL (1.80-7.70); PLATELET COUNT,PLT 325 K/uL (150-400); RED BLOOD CELL COUNT 5.31 M/uL (4.52-5.90); WHITE BLOOD CELL COUNT,WBC 13.23 K/uL (3.9-11.3)
[2023-12-16 19:35] LABS: CORONAVIRUS COVID-19 NAA NEGATIVE (NEGATIVE); INFLUENZA A NAA NEGATIVE (NEGATIVE); INFLUENZA B NAA NEGATIVE (NEGATIVE); RESPIRATORY SYNCYTIAL VIR NAA NEGATIVE (NEGATIVE)
[2023-12-16 19:51] LABS: CARBON DIOXIDE,CO2 25.1 mmol/L (21.0-32.0); EST CRCL DRUG DOSING (CG) 76.59 mL/min; MAGNESIUM 1.6 mg/dL (1.8-2.4); POTASSIUM,K 3.9 mmol/L (3.5-5.1)
[2023-12-16] MEDS: Acetaminophen 500 MG Tab PO ONE (20:27)
[2023-12-16 21:12] VITALS: BP 126/79; PULSE 69
== END 2023-12-16 21:11 | disposition home or self-care (01) ==
LOC: MW.ED 18:30
DX: R07.89 Other chest pain (principal); I10 Essential (primary) hypertension; I25.10 Atherosclerotic heart disease of native coronary artery without angina pectoris; E78.00 Pure hypercholesterolemia, unspecified; I25.2 Old myocardial infarction; E11.65 Type 2 diabetes mellitus with hyperglycemia; E86.0 Dehydration; D72.829 Elevated white blood cell count, unspecified; Z95.5 Presence of coronary angioplasty implant and graft; Z90.49 Acquired absence of other specified parts of digestive tract; Z86.19 Personal history of other infectious and parasitic diseases; Z79.4 Long term (current) use of insulin; Z79.899 Other long term (current) drug therapy; Z88.6 Allergy status to analgesic agent
CPT/HCPCS: 0241U; 36415; 71046; 80048; 83735; 84484; 85025; 99285; A9270; 93005; 93010; 99283

== ENCOUNTER 2024-06-03 08:06 | Day surgery (SDC) | payer MEDICARE ==
[~2024-06-03 08:06] MED LIST: Albuterol 0.083% 2.5 MG/3 ML Neb Soln NEB PRN; Bupivacaine 0.5% 10 ML SDV ONE; HYDROmorphone 1 MG/ML Syringe IVPUSH PRN; Lidocaine 1% 20 ML MDV ONE; Metoclopramide 10 MG/2 ML SDV IVPUSH PRN; Morphine 2 MG/ML SYRINGE IVPUSH PRN; Naloxone 0.4 MG/ML SDV IVPUSH PRN; Ondansetron 4 MG/2 ML SDV IVPUSH PRN; Phenylephrine HCl In 0.9% NaCl 1 MG/10 ML Syringe IVPUSH PRN; Sodium Chloride 0.9% 10 ML Syringe FLUSH PRN; Sodium Chloride 0.9% 2.5 ML Syringe FLUSH PRN; Sodium Chloride 0.9% 20 ML SDV IV PRN; ceFAZolin 2 GM in Sodium Chloride 0.9% 50 ML IV ONE; droPERidol 5 MG/2 ML SDV IVPUSH PRN; fentaNYL 50 MCG/ML SDV IVPUSH PRN
[2024-06-03] MEDS: Lactated Ringers 1,000 ML IV SCH (08:43)
[2024-06-03] MEDS ORDERED: Dexamethasone 4 MG/ML 5 ML MDV ONE (09:32)
[2024-06-03] MEDS ORDERED: Ondansetron 4 MG/2 ML SDV ONE (09:32)
[2024-06-03] MEDS ORDERED: Propofol 200 MG/20 ML SDV ONE (09:32)
[2024-06-03] MEDS ORDERED: fentaNYL 100 MCG/2 ML SDV ONE (09:32)
[2024-06-03] MEDS ORDERED: dexmedeTOMIDine HCl 200 MCG/2 ML SDV ONE (09:32)
[2024-06-03] MEDS ORDERED: Ketorolac 30 MG/ML SDV ONE (09:32)
[2024-06-03] MEDS ORDERED: Rocuronium Bromide 50 MG/5 ML Syringe ONE (09:50)
[2024-06-03] MEDS ORDERED: ceFAZolin 2 GM Vial ONE (10:15)
[2024-06-03] MEDS ORDERED: Phenylephrine HCl In 0.9% NaCl 1 MG/10 ML Syringe ONE (10:24)
[2024-06-03] MEDS ORDERED: Sugammadex Sodium 200 MG/2 ML VIAL IV ONE (10:44)
[2024-06-03 12:54] VITALS: BP 117/75; PULSE 93
== END 2024-06-03 13:00 | disposition home or self-care (01) ==
LOC: MW.SDS 08:06
PROVIDERS: ATTEND Surgery
DX: Z12.11 Encounter for screening for malignant neoplasm of colon (principal); R22.0 Localized swelling, mass and lump, head; K63.5 Polyp of colon; E78.00 Pure hypercholesterolemia, unspecified; K21.9 Gastro-esophageal reflux disease without esophagitis; E11.9 Type 2 diabetes mellitus without complications; K43.6 Other and unspecified ventral hernia with obstruction, without gangrene; Z79.82 Long term (current) use of aspirin; Z79.02 Long term (current) use of antithrombotics/antiplatelets; Z79.4 Long term (current) use of insulin; Z79.899 Other long term (current) drug therapy; Z88.8 Allergy status to other drugs, medicaments and biological substances
CPT/HCPCS: 11424; 45380; 82947; J0665; J0690; J1100; J2371; J2405; J2704; J3010; J3490; J7120; 00300; J1885

== ENCOUNTER 2024-07-15 06:31 | Day surgery (SDC) | payer MEDICARE ==
[~2024-07-15 06:31] MED LIST changes: -Albuterol 0.083% 2.5 MG/3 ML Neb Soln NEB PRN; -Bupivacaine 0.5% 10 ML SDV ONE; -HYDROmorphone 1 MG/ML Syringe IVPUSH PRN; -Lidocaine 1% 20 ML MDV ONE; -Metoclopramide 10 MG/2 ML SDV IVPUSH PRN; -Morphine 2 MG/ML SYRINGE IVPUSH PRN; -Naloxone 0.4 MG/ML SDV IVPUSH PRN; -Ondansetron 4 MG/2 ML SDV IVPUSH PRN; -Phenylephrine HCl In 0.9% NaCl 1 MG/10 ML Syringe IVPUSH PRN; -droPERidol 5 MG/2 ML SDV IVPUSH PRN; -fentaNYL 50 MCG/ML SDV IVPUSH PRN
[2024-07-15] MEDS: Lactated Ringers 1,000 ML IV SCH (07:03)
[2024-07-15] MEDS ORDERED: Bupivacaine 0.5% 30 ML SDV ONE (07:13)
[2024-07-15] MEDS ORDERED: Water For Injection, Sterile 20 ML ONE ×2 (07:27→07:32)
[2024-07-15] MEDS ORDERED: Morphine 10 MG/ML SDV ONE (07:27)
[2024-07-15] MEDS ORDERED: dexmedeTOMIDine HCl 200 MCG/2 ML SDV ONE (07:28)
[2024-07-15] MEDS ORDERED: Lidocaine 2% 5 ML SDV ONE (07:29)
[2024-07-15] MEDS ORDERED: Rocuronium Bromide 50 MG/5 ML Syringe ONE (07:29)
[2024-07-15] MEDS ORDERED: Propofol 200 MG/20 ML SDV ONE (07:30)
[2024-07-15] MEDS ORDERED: Dexamethasone 4 MG/ML 5 ML MDV ONE (07:30)
[2024-07-15] MEDS ORDERED: Morphine 2 MG/ML SYRINGE IVPUSH PRN (07:31)
[2024-07-15] MEDS ORDERED: Ropivacaine 0.5% 5 MG/ML 30 ML SDV ONE (07:31)
[2024-07-15] MEDS ORDERED: fentaNYL 50 MCG/ML SDV IVPUSH PRN (07:31)
[2024-07-15] MEDS ORDERED: Albuterol 0.083% 2.5 MG/3 ML Neb Soln NEB PRN (07:31)
[2024-07-15] MEDS ORDERED: fentaNYL 100 MCG/2 ML SDV ONE (07:31)
[2024-07-15] MEDS ORDERED: HYDROmorphone 1 MG/ML Syringe IVPUSH PRN (07:31)
[2024-07-15] MEDS ORDERED: Metoclopramide 10 MG/2 ML SDV IVPUSH PRN (07:31)
[2024-07-15] MEDS ORDERED: Phenylephrine HCl In 0.9% NaCl 1 MG/10 ML Syringe IVPUSH PRN (07:31)
[2024-07-15] MEDS ORDERED: Ondansetron 4 MG/2 ML SDV IVPUSH PRN (07:31)
[2024-07-15] MEDS ORDERED: Naloxone 0.4 MG/ML SDV IVPUSH PRN (07:31)
[2024-07-15] MEDS ORDERED: ceFAZolin 1 GM Vial ONE (07:32)
[2024-07-15] MEDS ORDERED: Phenylephrine HCl In 0.9% NaCl 1 MG/10 ML Syringe ONE (08:17)
[2024-07-15] MEDS ORDERED: Glycopyrrolate 0.2 MG/ML SDV ONE (08:24)
[2024-07-15] MEDS ORDERED: ePHEDrine 50 MG/ML SDV ONE (08:25)
[2024-07-15] MEDS ORDERED: Sugammadex Sodium 200 MG/2 ML VIAL IV ONE (08:48)
[2024-07-15 11:43] VITALS: BP 119/72; PULSE 74
== END 2024-07-15 11:35 | disposition home or self-care (01) ==
LOC: MW.SDS 06:31
PROVIDERS: ATTEND Surgery
DX: K42.9 Umbilical hernia without obstruction or gangrene (principal); K43.2 Incisional hernia without obstruction or gangrene; K66.0 Peritoneal adhesions (postprocedural) (postinfection); K21.9 Gastro-esophageal reflux disease without esophagitis; E78.00 Pure hypercholesterolemia, unspecified; E11.9 Type 2 diabetes mellitus without complications; E66.9 Obesity, unspecified; I10 Essential (primary) hypertension; L72.0 Epidermal cyst; Z88.8 Allergy status to other drugs, medicaments and biological substances; Z79.82 Long term (current) use of aspirin; Z79.899 Other long term (current) drug therapy; Z79.84 Long term (current) use of oral hypoglycemic drugs; Z87.891 Personal history of nicotine dependence; Z68.30 Body mass index [BMI] 30.0-30.9, adult
CPT/HCPCS: 49591; 82947; J0665; J0690; J1100; J1596; J2270; J2371; J2704; J2795; J3010; J3490; J7120; 00790; 64488

== ENCOUNTER 2024-08-30 10:45 | Emergency (ER) | payer MEDICARE ==
[2024-08-30 12:11] VITALS: BP 119/74; PULSE 60
== END 2024-08-30 12:10 | disposition home or self-care (01) ==
LOC: MW.ED 10:45
DX: L03.113 Cellulitis of right upper limb (principal); I10 Essential (primary) hypertension; I25.2 Old myocardial infarction; E78.00 Pure hypercholesterolemia, unspecified; E11.9 Type 2 diabetes mellitus without complications; E66.9 Obesity, unspecified; Z79.82 Long term (current) use of aspirin; Z79.899 Other long term (current) drug therapy; Z79.01 Long term (current) use of anticoagulants; Z88.8 Allergy status to other drugs, medicaments and biological substances
CPT/HCPCS: 99283

== ENCOUNTER 2024-12-08 19:53 | Emergency (ER) | payer MEDICARE ==
[2024-12-08 22:12] LABS: BASOPHILS ABSOLUTE AUTO 0.04 K/uL (0.00-0.20); BASOPHILS PERCENT AUTO 0.3 % (0.0-1.0); EOSINOPHILS ABSOLUTE AUTO 0.27 K/uL (0.00-0.45); EOSINOPHILS PERCENT AUTO 2.2 % (0.0-6.0); HEMATOCRIT 42.9 % (42.0-52.0); HEMOGLOBIN 14.9 g/dL (14.0-18.0); IMMATURE GRAN ABSOLUTE AUTO 0.03 K/uL (0.00-0.05); IMMATURE GRAN PERCENT AUTO 0.2 % (0.0-0.4); LYMPHOCYTES ABSOLUTE AUTO 3.33 K/uL (1.00-4.80); LYMPHOCYTES PERCENT AUTO 27.1 % (24.0-44.0); MEAN CORPUSCULAR HEMOGLOBIN 26.9 pg (28.0-32.0); MEAN CORPUSCULAR HGB CONC 34.7 g/dL (32.0-36.0); MEAN CORPUSCULAR VOLUME 77.4 fL (83.0-99.0); MEAN PLATELET VOLUME 9.1 fL (9.4-12.4); MONOCYTES ABSOLUTE AUTO 0.87 K/uL (0.00-0.80); MONOCYTES PERCENT AUTO 7.1 % (0.0-8.0); NEUTROPHILS ABSOLUTE AUTO 7.75 K/uL (1.80-7.70); NEUTROPHILS PERCENT AUTO 63.1 % (41.0-71.0); PLATELET COUNT,PLT 330 K/uL (150-400); RED BLOOD CELL COUNT 5.54 M/uL (4.52-5.90); WHITE BLOOD CELL COUNT,WBC 12.29 K/uL (3.9-11.3)
[2024-12-08] MEDS: fentaNYL 50 MCG/ML SDV IVPUSH ONE (22:19)
[2024-12-08 22:43] LABS: A/G RATIO 1.2 (0.9-1.6); ALBUMIN 4.1 g/dL (3.4-5.0); BILIRUBIN TOTAL 0.5 mg/dL (0.2-1.0); CALCIUM 9.1 mg/dL (8.5-10.1); CARBON DIOXIDE,CO2 25.2 mmol/L (21.0-32.0); CREATININE 0.9 mg/dL (0.8-1.3); EST CRCL DRUG DOSING (CG) 84.01 mL/min; POTASSIUM,K 3.7 mmol/L (3.5-5.1); PROTEIN TOTAL,TP 7.4 g/dL (6.4-8.2)
[2024-12-09 01:14] VITALS: BP 132/82; PULSE 78
== END 2024-12-09 01:14 | disposition home or self-care (01) ==
LOC: MW.ED 19:53
DX: G44.219 Episodic tension-type headache, not intractable (principal); I10 Essential (primary) hypertension; I25.2 Old myocardial infarction; E78.00 Pure hypercholesterolemia, unspecified; E11.9 Type 2 diabetes mellitus without complications; Z90.49 Acquired absence of other specified parts of digestive tract; Z88.6 Allergy status to analgesic agent; Z88.7 Allergy status to serum and vaccine; Z79.82 Long term (current) use of aspirin; Z79.84 Long term (current) use of oral hypoglycemic drugs; Z79.02 Long term (current) use of antithrombotics/antiplatelets; Z79.899 Other long term (current) drug therapy; Z79.4 Long term (current) use of insulin; Z95.5 Presence of coronary angioplasty implant and graft; Z87.891 Personal history of nicotine dependence; Z86.69 Personal history of other diseases of the nervous system and sense organs
CPT/HCPCS: 36415; 70450; 71045; 80053; 84484; 85025; 87428; 93005; 96374; 99284; J3010; 93010